=== PATIENT | female | born 1940 | race Hispanic/Latino ===

== ENCOUNTER 2016-12-09 11:01 | Emergency (ER) | payer MEDICARE ==
[2016-12-09 11:01] VITALS: BMI 33.6
[2016-12-09 11:53] LABS: BASO % 0.7 % (0.0-2.0); EOS # 0.1 K/uL (0.0-0.7); EOS % 0.8 % (0.0-4.0); HEMATOCRIT 37.7 % (34.0-47.0); LYMPH # 1.4 K/uL (1.0-4.3); LYMPH % 18.9 % (20.0-40.0); MEAN CELL VOLUME 89.5 fL (81.0-99.0); MEAN CORPUSCULAR HEMOGLOBIN 29.2 pg (27.0-31.0); MEAN CORPUSCULAR HGB CONC 32.7 g/dL (33.0-37.0); MEAN PLATELET VOLUME 9.1 fL (7.2-11.7); MONO # 0.5 K/uL (0.0-0.8); MONO % 6.2 % (0.0-10.0); RED CELL DISTRIBUTION WIDTH 17.7 % (11.5-14.5); WHITE BLOOD COUNT 7.6 K/uL (4.8-10.8)
[2016-12-09 12:02] LABS: CHLORIDE 98 mmol/L (98-107)
[2016-12-09 12:03] LABS: POTASSIUM 4.3 mmol/L (3.6-5.2); SODIUM 136 mmol/L (132-148)
[2016-12-09 12:05] LABS: AST/SGOT 24 U/L (14-36); BILIRUBIN,TOTAL 0.9 mg/dL (0.2-1.3); CARBON DIOXIDE 26 mmol/L (22-30); GFR AFRICAN-AMERICAN > 60
[2016-12-09 12:06] LABS: ALB/GLOB RATIO 1.6 (1.0-2.1); ALKALINE PHOSPHATASE 70 U/L (38-126); ALT/SGPT 16 U/L (9-52); BLOOD UREA NITROGEN 27 mg/dL (7-17); GLUCOSE,RANDOM 97 mg/dL (65-105); TOTAL PROTEIN 7.2 g/dL (6.3-8.3)
[2016-12-09 12:12] LABS: RBC URINE 13 /hpf (0-3); URINE BACTERIA RARE (<OCC); URINE BILIRUBIN NEGATIVE (NEGATIVE); URINE BLOOD 1+ (NEGATIVE); URINE COLOR Yellow (YELLOW); URINE GLUCOSE (UA) NORMAL (Normal); URINE KETONE NEGATIVE (NEGATIVE); URINE LEUKOCYTE ESTERASE 2+ Leu/uL (Negative); URINE PROTEIN NEGATIVE (NEGATIVE); URINE UROBILINOGEN NORMAL mg/dL (0.2-1.0); WBC URINE 14 /hpf (0-5)
--- NOTE | 2016-12-09 12:32 | RAD ---
PROCEDURE: CHEST RADIOGRAPH, 1 VIEW HISTORY: left sided pain COMPARISON: [facility] 06/12/2016. None available. FINDINGS: LUNGS: Clear. PLEURA: No pneumothorax or pleural fluid seen. CARDIOVASCULAR: Normal. OSSEOUS STRUCTURES: No significant abnormalities. VISUALIZED UPPER ABDOMEN: Normal. OTHER FINDINGS: None. IMPRESSION: No active disease. No acute/significant interval changes.
[2016-12-09] MEDS ORDERED: Iodixanol 320 MG/ML 100 ML BOTTLE IV ONE (13:14)
[2016-12-09] MEDS ORDERED: Oxycodone/Acetaminophen 5/325 mg Tab PO STA ×2 (14:41→17:34)
[2016-12-09] MEDS ORDERED: Oxycodone/Acetaminophen 5/325 mg Tab ONE ×2 (14:44→17:35)
--- NOTE | 2016-12-09 14:59 | CT ---
PROCEDURE: CT Chest, Abdomen and Pelvis with intravenous contrast HISTORY: left chest/flank pain COMPARISON: 03/10/2016 CT abdomen and pelvis TECHNIQUE: IV dose administered: 100 cc Visipaque 320 Radiation dose: Total exam DLP = 762.67 mGy-cm. This CT exam was performed using one or more of the following dose reduction techniques: Automated exposure control, adjustment of the mA and/or kV according to patient size, and/or use of iterative reconstruction technique. FINDINGS: CT CHEST WITH CONTRAST: LUNGS: Clear. No nodule, mass or consolidation. MEDIASTINUM: Unremarkable. Normal caliber aorta and pulmonary arterial trunk. No aortic dissection. Normal size heart. LYMPH NODES: Unremarkable. PLEURA: Unremarkable. No pneumothorax. No pleural fluid. BONES: Unremarkable. OTHER FINDINGS: Enlarged azygos and wen azygous vessels likely reflective of more distal thrombosis. Bus representing collateral flow. No evidence of aortic aneurysm, dissection or pulmonary embolism. CT ABDOMEN AND PELVIS: LIVER: Unremarkable. No gross lesion or ductal dilatation. GALLBLADDER AND BILE DUCTS: Cholelithiasis without CT evidence of acute cholecystitis. PANCREAS: Unremarkable. No gross lesion or ductal dilatation. SPLEEN: Unremarkable. ADRENALS: Unremarkable. No mass. KIDNEYS AND URETERS: Unremarkable. No hydronephrosis. No solid mass. Incidental finding(s): Simple renal cysts unchanged compared to prior studies. VASCULATURE: Unremarkable. No aortic aneurysm. Collateral venous this is chronic, identified on the prior study. 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 BOWEL: Unremarkable. No obstruction. No gross mural thickening. Diverticulosis without an acute inflammatory component or other associated pathologic process. APPENDIX: No abnormalities to suggest acute appendicitis. No right lower quadrant inflammatory processes identified. PERITONEUM: Unremarkable. No free fluid. No free air. LYMPH NODES: Unremarkable. No enlarged lymph nodes. BLADDER: Unremarkable. REPRODUCTIVE: Unremarkable. BONES: No acute fracture. OTHER FINDINGS: None. IMPRESSION: 1. No lymph 2. without CT evidence of acute cholecystitis. Diverticulosis without an acute inflammatory component or other associated pathologic process.
[2016-12-09 15:09] LABS: INR 2.1
--- NOTE | 2016-12-09 16:47 | C.PDOC ---
History Of Present Illness The patient, a 76 y/o female whose PMHx includes DVT and is currently taking Coumadin as prescribed, presents to the ED for evaluation of left-sided body pain which has been occurring in intermittent episodes for around 1 week. Patient denies fever, chills, recent trauma/injury, upper/lower extremity numbness/weakness. Time Seen by Provider: 12/09/16 11:10 Chief Complaint (Nursing): Abdominal Pain History Per: Patient History/Exam Limitations: no limitations Onset/Duration Of Symptoms: Intermittent Episodes (one week ) Current Symptoms Are (Timing): Still Present Quality Of Discomfort: "Pain" Associated Symptoms: denies: Fever, Chills Additional History Per: Patient Past Medical History Reviewed: Historical Data, Nursing Documentation, Vital Signs Vital Signs: Last Vital Signs Temp 98.5 F 12/09/16 11:15 Pulse 78 12/09/16 11:15 Resp 20 12/09/16 11:15 BP 164/85 H 12/09/16 11:15 Pulse Ox 99 12/09/16 17:46 - Medical History PMH: Arthritis, Colonic Polyps, Deep Vein Thrombosis, Fractures (RIGHT ANKLE), Gastritis, HTN, Hypercholesterolemia, Peripheral Edema Denies: Chronic Kidney Disease Surgical History: Endoscopy Family History: States: Unknown Family Hx - Social History Hx Tobacco Use: No Hx Alcohol Use: No Hx Substance Use: No - Immunization History Hx Tetanus Toxoid Vaccination: Yes Hx Influenza Vaccination: Yes Hx Pneumococcal Vaccination: Yes Review Of Systems Except As Marked, All Systems Reviewed And Found Negative. Constitutional: Negative for: Fever, Chills Musculoskeletal: Positive for: Other (+left-sided body pain ) Neurological: Negative for: Weakness, Numbness Physical Exam - Physical Exam Appears: Non-toxic, No Acute Distress Skin: Normal Color, Warm, Dry, No Ecchymosis Head: Atraumatic, Normacephalic Eye(s): bilateral: Normal Inspection Oral Mucosa: Moist Neck: Supple Chest: Symmetrical, No Deformity, Tenderness (slight to left lower lateral ribs) Cardiovascular: Rhythm Regular, No Murmur Respiratory: Normal Breath Sounds, No Rales, No Rhonchi, No Wheezing Gastrointestinal/Abdominal: Tenderness (to left upper quadrant on palpation ), No Guarding, No Rebound Extremity: Normal ROM, No Tenderness, No Calf Tenderness, Capillary Refill ( less than 2 seconds ), No Deformity, No Swelling Neurological/Psych: Oriented x3, Normal Speech, Normal Cognition Gait: Steady ED Course And Treatment - Laboratory Results Result Diagrams: 12/09/16 11:47 12/09/16 11:47 O2 Sat by Pulse Oximetry: 99 (on RA) Pulse Ox Interpretation: Normal - Other Rad CXR X-Ray: Interpreted by Me, Viewed By Me, Read By Radiologist Interpretation: Accession No. : [id number]. Patient Name / ID : BRENNAN Wyman / [id number]. Exam Date : 12/09/2016 11:52:11 ( Approved ). Study Comment : Sex / Age : F / 76Y. Creator : Raul Edge MD. Dictator : Raul Edge MD. Intake Manager : Automotive Glass Mechanic : Raul Edge MD. Approver2 : Report Date : 12/09/2016 12:30:38. My Comment : . PROCEDURE: CHEST RADIOGRAPH, 1 VIEW. HISTORY: left sided pain. COMPARISON: [facility] 06/12/2016. None available. FINDINGS: LUNGS: Clear. PLEURA: No pneumothorax or pleural fluid seen. CARDIOVASCULAR: Normal. OSSEOUS STRUCTURES: No significant abnormalities. VISUALIZED UPPER ABDOMEN: Normal. OTHER FINDINGS: None. IMPRESSION: No active disease. No acute/ significant interval changes. - CT Scan/US CT Angio Gamaliel/Abdomen/Pelvis Other Rad Studies (CT/US): Interpreted By Me, Read By Radiologist, Radiology Report Reviewed CT/US Interpretation: Accession No. : [id number]. Patient Name / ID : BRENNAN Wyman / [id number]. Exam Date : 12/09/2016 13:47:48 ( Approved ). Study Comment : Sex / Age : F / 76Y. Creator : Raul Edge MD. Dictator : Raul Edge MD. Intake Manager : Automotive Glass Mechanic : Raul Edge MD. Approver2 : Report Date : 12/09/2016 14:57:55. My Comment : . PROCEDURE: CT Chest, Abdomen and Pelvis with intravenous contrast. HISTORY: left chest/flank pain. COMPARISON: 03/10/2016 CT abdomen and pelvis. TECHNIQUE: IV dose administered: 100 cc Visipaque 320. Radiation dose: Total exam DLP = 762.67 mGy-cm. This CT exam was performed using one or more of the following dose reduction techniques: Automated exposure control, adjustment of the mA and/or kV according to patient size, and/ or use of iterative reconstruction technique. FINDINGS: CT CHEST WITH CONTRAST : LUNGS: Clear. No nodule, mass or consolidation. MEDIASTINUM: Unremarkable. Normal caliber aorta and pulmonary arterial trunk. No aortic dissection. Normal size heart. LYMPH NODES: Unremarkable. PLEURA: Unremarkable. No pneumothorax. No pleural fluid. BONES: Unremarkable. OTHER FINDINGS: Enlarged azygos and wen azygous vessels likely reflective of more distal thrombosis. Bus representing collateral flow. No evidence of aortic aneurysm, dissection or pulmonary embolism. CT ABDOMEN AND PELVIS: LIVER: Unremarkable. No gross lesion or ductal dilatation. GALLBLADDER AND BILE DUCTS : Cholelithiasis without CT evidence of acute cholecystitis. PANCREAS: Unremarkable. No gross lesion or ductal dilatation. SPLEEN: Unremarkable. ADRENALS: Unremarkable. No mass. KIDNEYS AND URETERS: Unremarkable. No hydronephrosis. No solid mass. Incidental finding(s): Simple renal cysts unchanged compared to prior studies. VASCULATURE: Unremarkable. No aortic aneurysm. Collateral venous this is chronic, identified on the prior study. 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 BOWEL: Unremarkable. No obstruction. No gross mural thickening. Diverticulosis without an acute inflammatory component or other associated pathologic process. APPENDIX: No abnormalities to suggest acute appendicitis. No right lower quadrant inflammatory processes identified. PERITONEUM: Unremarkable. No free fluid. No free air. LYMPH NODES: Unremarkable. No enlarged lymph nodes. BLADDER: Unremarkable. REPRODUCTIVE: Unremarkable. BONES: No acute fracture. OTHER FINDINGS: None. IMPRESSION: 1. No lymph. 2. without CT evidence of acute cholecystitis. Diverticulosis without an acute inflammatory component or other associated pathologic process. Progress Note: CT Angio Chest/Abdomen/Pelvis, CXR, EKG, and labs ordered and reviewed. Patient received Macrobid PO and Percocet PO. Case discussed with Dr. Kit Rizzo, who states patient's pain is chronic. Patient has undergone a cardiac workup in the past, the results of which were negative. Dr. Rizzo advises that there is no need for admission at this time and states he will follow up with patient in outpatient care. On reassessment, patient is resting comfortably, showing no signs of discomfort, and is stable for discharge. Patient is advised to follow up with Dr. Rizzo within 1-2 days for further evaluation or return to the ED if her symptoms worsen. Disposition - Disposition Disposition: HOME/ ROUTINE Disposition Time: 16:38 Condition: STABLE Additional Instructions: Follow up with PMD within 1-2 days. Return to ED if feel worse. Prescriptions: Nitrofurantoin Macrocrystals [Macrobid] 1 cap PO BID #14 cap oxyCODONE/Acetaminophen [Percocet 5/325 mg Tab] 1 tab PO QID PRN #15 tab PRN Reason: Pain Instructions: Urinary Tract Infection in Women (ED), Flank Pain (ED) - Clinical Impression Clinical Impression: UTI (lower urinary tract infection), Flank pain - PA / [employer] DIRECTOR / Resident Statement MD/DO has reviewed & agrees with the documentation as recorded. - Scribe Statement The provider has reviewed the documentation as recorded by the Scribe (Vane Oquendo) All medical record entries made by the Scribe were at my direction and personally dictated by me. I have reviewed the chart and agree that the record accurately reflects my personal performance of the history, physical exam, medical decision making, and the department course for this patient. I have also personally directed, reviewed, and agree with the discharge instructions and disposition.
[2016-12-09 17:48] VITALS: BP 155/70; PULSE 74; RESP 18; TEMP 98.7
[2016-12-09 17:50] VITALS: O2SAT 99
--- NOTE | 2016-12-12 12:18 | CARD ---
APPROVED REPORT EKG Measurement Heart [id number] [id number] <Conclusion> Normal sinus rhythm Normal ECG
== END 2016-12-09 17:48 | disposition home or self-care (01) ==
LOC: C.ER 11:01
DX: N39.0 Urinary tract infection, site not specified (principal); R10.9 Unspecified abdominal pain; I10 Essential (primary) hypertension; E78.00 Pure hypercholesterolemia, unspecified; Z86.718 Personal history of other venous thrombosis and embolism; Z79.01 Long term (current) use of anticoagulants
CPT/HCPCS: 71010; 71270; 74175; 80053; 81001; 85025; 85610; 85730; 93005; 99285; Q9967

== ENCOUNTER 2017-01-18 17:31 | Inpatient (IN) | payer MEDICARE ==
[2017-01-18 17:31] VITALS: BMI 33.6
[2017-01-18 18:45] LABS: BASO % 0.3 % (0.0-2.0); EOS % 0.1 % (0.0-4.0); HEMOGLOBIN 13.5 g/dL (11.0-16.0); LYMPH # 1.3 K/uL (1.0-4.3); LYMPH % 16.1 % (20.0-40.0); MEAN CELL VOLUME 89.8 fL (81.0-99.0); MEAN CORPUSCULAR HGB CONC 32.3 g/dL (33.0-37.0); MEAN PLATELET VOLUME 8.4 fL (7.2-11.7); MONO # 0.6 K/uL (0.0-0.8); MONO % 6.9 % (0.0-10.0); NEUT # 6.4 K/uL (1.8-7.0); NEUT % 76.6 % (50.0-75.0); NRBC % 0.1 % (0.0-2.0); RBC 4.65 Mil/uL (3.80-5.20); RED CELL DISTRIBUTION WIDTH 17.3 % (11.5-14.5); WHITE BLOOD COUNT 8.3 K/uL (4.8-10.8)
--- NOTE | 2017-01-18 18:49 | C.PDOC ---
History Of Present Illness Patient is a 76 y/o female that presents to the ED for evaluation of intermittent shortness of breath for the last week. Patient states that her symptoms are worse after eating. Pt also reports having near syncopal episode yesterday, including dizziness, and lightheadedness, but states that she felt better after sitting down. Otherwise, denies any chest pain, palpitations, cough , sputum, fever, or any other associated symptoms at this time. Time Seen by Provider: 01/18/17 18:18 Chief Complaint (Nursing): Shortness Of Breath History Per: Patient History/Exam Limitations: no limitations Onset/Duration Of Symptoms: Days (1 week) Current Symptoms Are (Timing): Still Present Associated Symptoms: denies: Fever, Chills, Sweating, Chest Pain, Bloody Cough, Productive Cough, Heart Racing, Leg/Calf Pain, Ankle/Leg Swelling, Anxiety, Tingling In Hands Or Face, Musle Spasms In Hands Or Feet Recent travel outside of the [place]: No Additional History Per: Patient Past Medical History Reviewed: Historical Data, Nursing Documentation, Vital Signs Vital Signs: Last Vital Signs Temp 98.4 F 01/18/17 17:32 Pulse 86 01/18/17 17:32 Resp 11 L 01/18/17 18:29 BP 178/76 H 01/18/17 17:32 Pulse Ox 98 01/18/17 19:04 - Medical History PMH: Arthritis, Colonic Polyps, Deep Vein Thrombosis, Fractures (RIGHT ANKLE), Gastritis, HTN, Hypercholesterolemia, Peripheral Edema Denies: Chronic Kidney Disease Surgical History: Endoscopy Family History: States: Unknown Family Hx - Social History Hx Tobacco Use: No Hx Alcohol Use: No Hx Substance Use: No - Immunization History Hx Tetanus Toxoid Vaccination: No Hx Influenza Vaccination: Yes Hx Pneumococcal Vaccination: No Review Of Systems Except As Marked, All Systems Reviewed And Found Negative. Constitutional: Negative for: Fever, Chills Cardiovascular: Negative for: Chest Pain, Palpitations, Edema Respiratory: Positive for: Shortness of Breath. Negative for: Cough, Hemoptysis , Pleuritic Pain, Sputum, Wheezing Gastrointestinal: Negative for: Nausea, Vomiting Neurological: Negative for: Weakness, Numbness, Headache Physical Exam - Physical Exam Appears: Non-toxic, No Acute Distress Skin: Normal Color, Warm, Dry Head: Atraumatic, Normacephalic Eye(s): bilateral: Normal Inspection, EOMI Neck: Normal ROM, Supple Chest: Symmetrical, No Tenderness Cardiovascular: Rhythm Regular, No Murmur Respiratory: Decreased Breath Sounds (in bases), No Rales, No Rhonchi, No Wheezing Gastrointestinal/Abdominal: Soft, No Tenderness Extremity: Normal ROM, No Deformity Neurological/Psych: Oriented x3, Normal Speech, Normal Cognition ED Course And Treatment - Laboratory Results Result Diagrams: 01/18/17 18:42 01/18/17 18:42 ECG: Interpreted By Me, Viewed By Me ECG Rhythm: Sinus Rhythm ECG Interpretation: Abnormal Interpretation Of ECG: Compared to EKG from 12/09/16, there is new T wave inversion in lead III, and AVF. Rate From EC (bpm) O2 Sat by Pulse Oximetry: 98 (on RA) Pulse Ox Interpretation: Normal Progress Note: Labs, CXR, EKG ordered and reviewed. On reassessment, patient is resting comfortably, with no acute distress. - Physician Consult Information Physician Contacted: Kit Rizzo Outcome Of Conversation: Accepted to tele for observation. Requested to order Head CT, will follow the result. Disposition - Disposition Disposition: HOSPITALIZED Disposition Time: 19:33 Condition: FAIR - Clinical Impression Clinical Impression: SOB (shortness of breath), Near syncope - PA / PLATE FORMER / Resident Statement MD/DO has reviewed & agrees with the documentation as recorded. - Scribe Statement The provider has reviewed the documentation as recorded by the Scribe iBjan Oquendo All medical record entries made by the Scribe were at my direction and personally dictated by me. I have reviewed the chart and agree that the record accurately reflects my personal performance of the history, physical exam, medical decision making, and the department course for this patient. I have also personally directed, reviewed, and agree with the discharge instructions and disposition. Decision To Admit - Pt Status Changed To: Hospital Disposition Of: Observation - . Bed Request Type: Telemetry Admitting Physician: Kit Rizzo Patient Diagnosis: SOB (shortness of breath), Near syncope
[2017-01-18 18:55] LABS: INR 4.3
[2017-01-18 18:56] LABS: ALB/GLOB RATIO 1.4 (1.0-2.1); AST/SGOT 22 U/L (14-36); BLOOD UREA NITROGEN 27 mg/dL (7-17); GFR AFRICAN-AMERICAN > 60; GFR NON-AFRICAN AMERICAN > 60
[2017-01-18 18:57] LABS: ALT/SGPT 16 U/L (9-52); CALCIUM 9.2 mg/dl (8.6-10.4)
[2017-01-18 19:00] LABS: PROTHROMBIN TIME 51.1 SECONDS (9.7-12.2)
[2017-01-18 19:05] LABS: CK-MB 0.63 ng/mL (0.0-3.38)
[2017-01-18] MEDS ORDERED: Home Med 1 UNIT (Atorvastatin [Lipitor] 10 MG) PO SCH (20:45)
--- NOTE | 2017-01-19 08:04 | CT ---
PROCEDURE: CT HEAD WITHOUT CONTRAST. HISTORY: near syncope COMPARISON: None available. TECHNIQUE: Axial computed tomography images were obtained through the head/brain without intravenous contrast. Radiation dose: Total exam DLP = 822 mGy-cm. This CT exam was performed using one or more of the following dose reduction techniques: Automated exposure control, adjustment of the mA and/or kV according to patient size, and/or use of iterative reconstruction technique. FINDINGS: HEMORRHAGE: No intracranial hemorrhage. BRAIN: No mass effect or edema. Scattered focal lucencies in the subcortical and periventricular white matter suggestive for chronic microvascular ischemic change. Diffuse prominence of the ventricles and sulci compatible with age related atrophy. Relative confluent area of low attenuation seen within the posterior left parietal subcortical white matter suggestive for chronic ischemic change. VENTRICLES: Prominent. CALVARIUM: Unremarkable. PARANASAL SINUSES: Grossly preserved. MASTOID AIR CELLS: Partial opacification of the left mastoid air cells. OTHER FINDINGS: Atherosclerotic calcification in the intracranial arteries. Heterogeneous increased density in the left orbital globe. Clinical correlation. IMPRESSION: Chronic microvascular ischemic change. Diffuse atrophy. Left mastoid disease. Heterogeneous increased density in the left orbital globe. Rep recommend funduscopic examination if clinically indicated. If focal neurologic deficit persists, consider MRI. These findings were preliminarily reported at 8:56 p.m. on 01/18/[address] Juve Lazar from [facility].
--- NOTE | 2017-01-19 09:13 | RAD ---
PROCEDURE: CHEST RADIOGRAPH, 1 VIEW HISTORY: Shortness of breath COMPARISON: 12/09/2016 FINDINGS: LUNGS: Biapical pleural thickening with upper lobe granulomatous changes. Diffuse increased interstitial lung markings. Right hilar prominence. PLEURA: No pneumothorax or pleural fluid seen. CARDIOVASCULAR: Normal. OSSEOUS STRUCTURES: Degenerative changes in the spine and shoulders. VISUALIZED UPPER ABDOMEN: Normal. OTHER FINDINGS: None. IMPRESSION: Biapical pleural thickening with upper lobe granulomatous changes. Diffuse increased interstitial lung markings. Right hilar prominence.
[2017-01-19] MEDS: Pantoprazole 40 mg EC Tab PO SCH (10:10)
[2017-01-19] MEDS: diltiaZEM 180 mg/24 Hours CD Cap PO SCH (10:10)
[2017-01-19 13:56] LABS: SQUAMOUS EPITHIAL < 1 /hpf (0-5); URINE BILIRUBIN NEGATIVE (NEGATIVE); URINE BLOOD 1+ (NEGATIVE); URINE CLARITY Clear (Clear); URINE COLOR Straw (YELLOW); URINE GLUCOSE (UA) NORMAL (Normal); URINE LEUKOCYTE ESTERASE 1+ Leu/uL (Negative); URINE NITRATE NEGATIVE (NEGATIVE); URINE PROTEIN NEGATIVE (NEGATIVE); URINE UROBILINOGEN NORMAL mg/dL (0.2-1.0)
[2017-01-19 14:19] LABS: BASO % 0.3 % (0.0-2.0); EOS % 0.2 % (0.0-4.0); HEMOGLOBIN 14.4 g/dL (11.0-16.0); LYMPH # 1.1 K/uL (1.0-4.3); LYMPH % 12.7 % (20.0-40.0); MEAN CELL VOLUME 90.3 fL (81.0-99.0); MEAN CORPUSCULAR HEMOGLOBIN 29.2 pg (27.0-31.0); MEAN CORPUSCULAR HGB CONC 32.3 g/dL (33.0-37.0); MEAN PLATELET VOLUME 8.7 fL (7.2-11.7); MONO # 0.4 K/uL (0.0-0.8); MONO % 5.3 % (0.0-10.0); NEUT # 6.8 K/uL (1.8-7.0); NEUT % 81.5 % (50.0-75.0); RBC 4.94 Mil/uL (3.80-5.20); RED CELL DISTRIBUTION WIDTH 17.8 % (11.5-14.5); WHITE BLOOD COUNT 8.4 K/uL (4.8-10.8)
[2017-01-19 14:24] LABS: INR 3.5
[2017-01-19 14:28] LABS: ALBUMIN 4.2 g/dL (3.5-5.0)
[2017-01-19 14:31] LABS: ALB/GLOB RATIO 1.3 (1.0-2.1); ALT/SGPT 23 U/L (9-52); AST/SGOT 20 U/L (14-36); BLOOD UREA NITROGEN 23 mg/dL (7-17); GFR AFRICAN-AMERICAN > 60; GFR NON-AFRICAN AMERICAN > 60
[2017-01-19 14:32] LABS: CALCIUM 9.2 mg/dl (8.6-10.4)
[2017-01-19 14:36] LABS: PROTHROMBIN TIME 40.9 SECONDS (9.7-12.2)
--- NOTE | 2017-01-19 17:08 | CARD ---
APPROVED REPORT EKG Measurement Heart [id number] <Conclusion> Normal sinus rhythm T wave abnormality, consider inferior ischemia Abnormal ECG
--- NOTE | 2017-01-19 17:16 | US ---
PROCEDURE: Ultrasound of the Kidneys HISTORY: htn COMPARISON: None available. TECHNIQUE: Sonogram of the kidneys. FINDINGS: RIGHT KIDNEY: Measures: 10.2 cm. Diffusely increased cortical echogenicity. Upper pole simple cortical cyst, 2.9 x 3.0 x 3.3 cm. No other mass. No calculus or hydronephrosis. LEFT KIDNEY: Measures: 9.1 cm. Diffusely increased cortical echogenicity. Mid left renal cortical cyst, 9 x 9 x 15 mm. No solid mass. No calculus or hydronephrosis. OTHER FINDINGS: None. IMPRESSION: Increased renal cortical echogenicity. Bilateral simple renal cortical cyst.
[2017-01-20 08:06] LABS: INR 3.3
[2017-01-20 08:18] LABS: PROTHROMBIN TIME 39.2 SECONDS (9.7-12.2)
[2017-01-20 08:32] VITALS: RESP 18; O2SAT 97
[2017-01-20] MEDS: Pantoprazole 40 mg EC Tab PO SCH (10:31)
[2017-01-20] MEDS: diltiaZEM 180 mg/24 Hours CD Cap PO SCH (10:31)
[2017-01-20] MEDS ORDERED: Pneumococcal 23-Valent Vaccine IM ONE (14:15)
[2017-01-20 15:33] VITALS: BP 110/68; PULSE 71; TEMP 98.2
--- NOTE | 2017-01-20 17:33 | PCM.HF ---
Heart Failure Core Measure - Heart Failure Ejection Fraction: 40 % or Greater CLIVE Inhibitor Prescribed: No Contraindication/Reason for not providing: EF>45 Beta-Radha Prescribed: Metoprolol Succinate Angiotensin II Receptor Radha Prescribed: No Contraindication/Reason for not providing: ef>45 AnticoagulationTherapy for Atrial Fibrillation/Atrialflutter: Yes Aldosterone Antagonist Prescribed: No Contraindication/Reason for not providing: ef>45 Hydralazine Nitrate Prescribed: No Contraindication/Reason for not providing: on cardizem for rate controll/ef>45 Implantable Cardioverter Defibrillator Therapy: No Contraindication/Reason for not providing: ef.45 Cardiac Resynchronization Therapy Prescribed: No Contraindication/Reason for not providing: ef.45 - Follow up Will be discharged to: Home Follow Up Date (must be within 7 days from discharge): 01/23/17 Follow Up Time: 09:00
[2017-01-21] MEDS ORDERED: Pneumococcal 23-Valent Vaccine IM ONE (10:00)
== END 2017-01-20 16:47 | disposition home or self-care (01) | DRG 312 ==
LOC: C.ER 17:31 → C.6T 19:30 → OBSVTOIN 01-19 13:03 → UNDODISIN 01-20 14:17
PROVIDERS: ADMIT Internal Medicine Cardiovascular Disease; ATTEND Internal Medicine Cardiovascular Disease
DX: R55 Syncope and collapse (principal); R06.00 Dyspnea, unspecified; I10 Essential (primary) hypertension; E78.00 Pure hypercholesterolemia, unspecified; Z86.010 Personal history of colon polyps; Z86.718 Personal history of other venous thrombosis and embolism

== ENCOUNTER 2017-05-09 10:55 | Emergency (ER) | payer MEDICARE ==
[2017-05-09 11:05] VITALS: BMI 32.5
[2017-05-09 11:32] LABS: BASO # 0.1 K/uL (0.0-0.2); BASO % 0.9 % (0.0-2.0); EOS % 0.3 % (0.0-4.0); HEMATOCRIT 40.9 % (34.0-47.0); LYMPH # 0.9 K/uL (1.0-4.3); MEAN CELL VOLUME 92.4 fL (81.0-99.0); MEAN CORPUSCULAR HEMOGLOBIN 30.6 pg (27.0-31.0); MEAN CORPUSCULAR HGB CONC 33.1 g/dL (33.0-37.0); MEAN PLATELET VOLUME 8.7 fL (7.2-11.7); MONO # 0.4 K/uL (0.0-0.8); MONO % 6.2 % (0.0-10.0); RED CELL DISTRIBUTION WIDTH 16.1 % (11.5-14.5); WHITE BLOOD COUNT 6.9 K/uL (4.8-10.8)
[2017-05-09 11:48] LABS: INR 2.4
[2017-05-09 11:52] LABS: CHLORIDE 96 mmol/L (98-107)
[2017-05-09 11:53] LABS: SODIUM 136 mmol/L (132-148)
[2017-05-09 11:55] LABS: ALB/GLOB RATIO 1.3 (1.0-2.1); AST/SGOT 19 U/L (14-36); BILIRUBIN,TOTAL 0.7 mg/dL (0.2-1.3); CARBON DIOXIDE 29 mmol/L (22-30); GFR AFRICAN-AMERICAN > 60; TOTAL PROTEIN 7.6 g/dL (6.3-8.3)
[2017-05-09 11:56] LABS: ALKALINE PHOSPHATASE 67 U/L (38-126); ALT/SGPT 29 U/L (9-52); BLOOD UREA NITROGEN 22 mg/dL (7-17); CALCIUM 9.6 mg/dl (8.6-10.4); GLUCOSE,RANDOM 95 mg/dL (65-105)
--- NOTE | 2017-05-09 12:34 | RAD ---
HISTORY: SOB COMPARISON: Chest x-ray performed 01/18/17 TECHNIQUE: Chest PA and lateral FINDINGS: Examination limited by habitus. LUNGS: Mild biapical pleural thickening with upper lobe granulomatous changes. Diffuse increased interstitial markings. No focal consolidation. Please note that chest x-ray has limited sensitivity for the detection of pulmonary masses. PLEURA: No significant pleural effusion identified. No definite pneumothorax . CARDIOVASCULAR: Heart size appears top normal. OSSEOUS STRUCTURES: Osseous demineralization. Degenerative changes of the spine. VISUALIZED UPPER ABDOMEN: Unremarkable. OTHER FINDINGS: None. IMPRESSION: Mild biapical pleural thickening with upper lobe granulomatous changes. Diffuse increased interstitial markings.
[2017-05-09 12:57] VITALS: RESP 20; O2SAT 97
[2017-05-09 13:14] LABS: URINE BILIRUBIN NEGATIVE (NEGATIVE); URINE BLOOD 1+ (NEGATIVE); URINE COLOR Straw (YELLOW); URINE GLUCOSE (UA) NORMAL (Normal); URINE KETONE NEGATIVE (NEGATIVE); URINE LEUKOCYTE ESTERASE NEG Leu/uL (Negative); URINE PROTEIN NEGATIVE (NEGATIVE); URINE UROBILINOGEN NORMAL mg/dL (0.2-1.0); WBC URINE 1 /hpf (0-5)
[2017-05-09 13:15] LABS: RBC URINE 2 /hpf (0-3); URINE BACTERIA RARE (<OCC)
--- NOTE | 2017-05-09 13:24 | C.PDOC ---
History Of Present Illness 76 y/o female with PMHx of HTN and DVT presents to ED with complaints of developing chest pain earlier today. Patient at ed is asymptomatic but states she was concerned and came for evaluation. Patient is on Coumadin and reports x1 episode of chest pain lasted 20minutes. Patient denies fever, chills, sob, cough, nausea, dizziness or any other complaints at this time. Time Seen by Provider: 05/09/17 11:10 Chief Complaint (Nursing): Chest Pain History Per: Patient History/Exam Limitations: no limitations Onset/Duration Of Symptoms: Hrs Current Symptoms Are (Timing): Gone Past Medical History Reviewed: Historical Data, Nursing Documentation, Vital Signs Vital Signs: Last Vital Signs Temp 98.2 F 05/09/17 13:44 Pulse 71 05/09/17 13:44 Resp 20 05/09/17 13:44 BP 168/64 H 05/09/17 13:44 Pulse Ox 97 05/09/17 17:41 - Medical History PMH: Arthritis, Colonic Polyps, Deep Vein Thrombosis, Fractures (RIGHT ANKLE), Gastritis, HTN, Hypercholesterolemia, Peripheral Edema Surgical History: Endoscopy Family History: States: No Known Family Hx - Social History Hx Tobacco Use: No Hx Alcohol Use: No Hx Substance Use: No - Immunization History Hx Tetanus Toxoid Vaccination: No Hx Influenza Vaccination: Yes Hx Pneumococcal Vaccination: Yes Review Of Systems Constitutional: Negative for: Fever, Chills Cardiovascular: Positive for: Chest Pain Respiratory: Negative for: Cough, Shortness of Breath Gastrointestinal: Negative for: Nausea, Vomiting Skin: Negative for: Rash Neurological: Negative for: Weakness, Numbness Physical Exam - Physical Exam Appears: Non-toxic, No Acute Distress Skin: Normal Color, Warm, Dry, No Rash Head: Atraumatic, Normacephalic Oral Mucosa: Moist Neck: Normal ROM, Supple Chest: Symmetrical, Other (reproducible right chest pain ) Cardiovascular: Rhythm Regular Respiratory: Normal Breath Sounds, No Rales, No Rhonchi, No Wheezing Gastrointestinal/Abdominal: Soft, No Tenderness, No Guarding, No Rebound Extremity: Normal ROM, No Pedal Edema Neurological/Psych: Oriented x3 ED Course And Treatment - Laboratory Results Result Diagrams: 05/09/17 11:24 05/09/17 11:24 Lab Interpretation: Normal ECG: Interpreted By Me, Viewed By Me ECG Rhythm: Sinus Rhythm, 1st Degree HB ECG Interpretation: No Acute Changes Rate From EC (BPM) O2 Sat by Pulse Oximetry: 97 (RA) - Radiology CXR: Interpreted by Me CXR Interpretation: Yes: No Acute Disease Progress Note: Case discussed with Dr Zenia Rizzo and agrees with discharge and follow up as outpatient. On re evaluation lungs clear in no distress Reassessment Condition: Unchanged - Physician Consult Information Physician Contacted: Kit Rizzo Outcome Of Conversation: discharge Medical Decision Making Medical Decision Making: Plan: ECG Progress: Spoke with patient PMD Dr.Shah Pantoja who stated patient had history of cardiac cath x1 year ago that was normal PMD agreed upon patient's discharge with follow up Disposition Discussed With Dr.: Kit Rizzo Doctor Will See Patient In The: Office Counseled Patient/Family Regarding: Studies Performed, Diagnosis, Need For Followup - Disposition Referrals: Kit Rizzo MD [Staff Provider] - Disposition: HOME/ ROUTINE Disposition Time: 15:00 Condition: STABLE Additional Instructions: Follow up with Dr Rizzo for further evaluation Return toed if any increase symptoms Instructions: Chest Pain (ED), Chest Wall Pain (ED) Forms: [email or web address] (Barbadian) - POA Present On Arrival: None - Clinical Impression Clinical Impression: Chest wall pain - PA / INTERNATIONAL TRADE SPECIALIST / Resident Statement MD/DO has reviewed & agrees with the documentation as recorded. - Scribe Statement The provider has reviewed the documentation as recorded by the Rut Tariq All medical record entries made by the Rut were at my direction and personally dictated by me. I have reviewed the chart and agree that the record accurately reflects my personal performance of the history, physical exam, medical decision making, and the department course for this patient. I have also personally directed, reviewed, and agree with the discharge instructions and disposition.
[2017-05-09 13:45] VITALS: BP 168/64; PULSE 71; TEMP 98.2
--- NOTE | 2017-05-12 10:40 | CARD ---
APPROVED REPORT EKG Measurement Heart [id number] <Conclusion> Normal sinus rhythm Normal ECG
== END 2017-05-09 13:44 | disposition home or self-care (01) ==
LOC: C.ER 10:55
DX: R07.89 Other chest pain (principal)

== ENCOUNTER 2017-08-23 15:20 | Emergency (ER) | payer MEDICARE ==
[2017-08-23 15:21] VITALS: BMI 32.5
[2017-08-23] MEDS ORDERED: Sodium Chloride 0.9% 1,000 ML IV ONE (17:21)
[2017-08-23] MEDS ORDERED: Sodium Chloride 0.9% 1,000 ML ONE (17:40)
[2017-08-23 17:41] LABS: BASO % 0.5 % (0.0-2.0); EOS % 0.1 % (0.0-4.0); HEMOGLOBIN 12.3 g/dL (11.0-16.0); LYMPH % 13.1 % (20.0-40.0); MEAN CELL VOLUME 91.9 fL (81.0-99.0); MEAN CORPUSCULAR HEMOGLOBIN 30.9 pg (27.0-31.0); MEAN CORPUSCULAR HGB CONC 33.7 g/dL (33.0-37.0); MEAN PLATELET VOLUME 7.8 fL (7.2-11.7); MONO # 0.5 K/uL (0.0-0.8); MONO % 6.8 % (0.0-10.0); NEUT # 6.1 K/uL (1.8-7.0); NEUT % 79.5 % (50.0-75.0); RBC 3.99 Mil/uL (3.80-5.20); RED CELL DISTRIBUTION WIDTH 17.5 % (11.5-14.5); WHITE BLOOD COUNT 7.7 K/uL (4.8-10.8)
[2017-08-23 17:57] LABS: SQUAMOUS EPITHIAL 1 /hpf (0-5); URINE BACTERIA RARE (<OCC); URINE BILIRUBIN NEGATIVE (NEGATIVE); URINE BLOOD 1+ (NEGATIVE); URINE CLARITY Hazy (Clear); URINE COLOR Yellow (YELLOW); URINE GLUCOSE (UA) NORMAL (Normal); URINE HYALINE CAST 0-2 /lpf (0-2); URINE LEUKOCYTE ESTERASE 3+ Leu/uL (Negative); URINE NITRATE NEGATIVE (NEGATIVE); URINE PROTEIN NEGATIVE (NEGATIVE); URINE UROBILINOGEN NORMAL mg/dL (0.2-1.0)
[2017-08-23 17:59] LABS: ALB/GLOB RATIO 1.5 (1.0-2.1); ALT/SGPT 19 U/L (9-52); AST/SGOT 19 U/L (14-36); BLOOD UREA NITROGEN 33 mg/dL (7-17); GFR AFRICAN-AMERICAN > 60; GFR NON-AFRICAN AMERICAN > 60; LIPASE 104 U/L (23-300)
--- NOTE | 2017-08-23 18:50 | C.PDOC ---
History Of Present Illness <DerasOg Stevo - Last Filed: 08/23/17 22:09> <Reese MENDEZHermilo - Last Filed: 08/24/17 18:36> 76 y/o female presents to the ED for evaluation of epigastric and LUQ abdominal pain which began 2 days ago. Patient reports she is currently taking Coumadin. She denies fever, chills, cough, chest pain, nausea, vomiting, diarrhea, changes in appetite/PO intake, (Hermilo Leigh DO) <BraedenOg R - Last Filed: 08/23/17 22:09> History Per: Patient History/Exam Limitations: no limitations Onset/Duration Of Symptoms: Days (2) Current Symptoms Are (Timing): Still Present Location Of Pain/Discomfort: Epigastric, LUQ Quality Of Discomfort: "Pain" Associated Symptoms: denies: Fever, Chills, Nausea, Vomiting, Diarrhea, Chest Pain Additional History Per: Patient Abnormal Vaginal Bleeding: No <Hermilo Leigh DO - Last Filed: 08/24/17 18:36> Chief Complaint (Nursing): Abdominal Pain Past Medical History Reviewed: Historical Data, Nursing Documentation, Vital Signs - Medical History PMH: Arthritis, Colonic Polyps, Deep Vein Thrombosis, Fractures (RIGHT ANKLE), Gastritis, HTN, Hypercholesterolemia, Peripheral Edema Denies: Chronic Kidney Disease Surgical History: Endoscopy Family History: States: Unknown Family Hx - Social History Hx Tobacco Use: No Hx Alcohol Use: No Hx Substance Use: No - Immunization History Hx Tetanus Toxoid Vaccination: No Hx Influenza Vaccination: No Hx Pneumococcal Vaccination: No <Reese MENDEZHermilo - Last Filed: 08/24/17 18:36> Vital Signs: Last Vital Signs Temp 98.5 F 08/23/17 22:28 Pulse 78 08/23/17 22:28 Resp 17 08/23/17 22:28 BP 167/71 H 08/23/17 22:28 Pulse Ox 95 08/23/17 22:28 Review Of Systems Constitutional: Negative for: Fever, Chills Cardiovascular: Negative for: Chest Pain Respiratory: Negative for: Cough Gastrointestinal: Positive for: Abdominal Pain (epigastric and LUQ ). Negative for: Nausea, Vomiting, Diarrhea <Hermilo Leigh DO - Last Filed: 08/24/17 18:36> Physical Exam - Physical Exam Appears: Non-toxic Skin: Normal Color, Warm, Dry Head: Atraumatic, Normacephalic Eye(s): bilateral: Normal Inspection Oral Mucosa: Moist Neck: Supple Chest: Symmetrical, No Deformity, No Tenderness Cardiovascular: Rhythm Regular, No Murmur Respiratory: Normal Breath Sounds, No Rales, No Rhonchi, No Wheezing Gastrointestinal/Abdominal: Soft, Tenderness (very mild, to epigastric and left upper quadrant ), No Guarding, No Rebound Extremity: Normal ROM, Capillary Refill (less than 2 seconds ) Neurological/Psych: Oriented x3, Normal Speech, Normal Cognition Gait: Steady <Hermilo Leigh DO - Last Filed: 08/24/17 18:36> ED Course And Treatment - Laboratory Results Result Diagrams: 08/23/17 17:37 08/23/17 17:37 <Og Deras - Last Filed: 08/23/17 22:09> - Laboratory Results Result Diagrams: 08/23/17 17:37 08/23/17 17:37 O2 Sat by Pulse Oximetry: 93 <Hermilo Leigh DO - Last Filed: 08/24/17 18:36> Medical Decision Making <Og Deras - Last Filed: 08/23/17 22:09> <Hermilo Leigh DO - Last Filed: 08/24/17 18:36> Medical Decision Making: Progress: Bloodwork, urinalysis, CT A/P ordered and reviewed. Pepcid IVP, Zofran IVP, and IV Fluids administered. (Hermilo Leigh DO) Disposition Counseled Patient/Family Regarding: Diagnosis - Disposition Disposition Time: 22:10 - POA Present On Arrival: None <Og Deras Last Filed: 08/23/17 22:09> <Hermilo Leigh DO - Last Filed: 08/24/17 18:36> - Disposition Referrals: [facility] [Outside] Disposition: HOME/ ROUTINE Condition: STABLE Prescriptions: Nitrofurantoin Macrocrystals [Macrobid] 1 cap PO BID #14 cap Phenobarb/Hyoscy/Atropine/Scop [ Tablet] 16.2 mg PO Q6 #14 tablet Instructions: Urinary Tract Infection in Women (GEN), Abdominal Pain (ED) Forms: [employer] (Ethiopian) - Clinical Impression Clinical Impression: Abdominal pain, Urinary tract infection, Gall bladder stones <Og Deras - Last Filed: 08/23/17 22:09> - Scribe Statement The provider has reviewed the documentation as recorded by the Scribe (Vane Oquendo) <Hermilo Leigh DO - Last Filed: 08/24/17 18:36> - Scribe Statement Provider Attestation: All medical record entries made by the Scribe were at my direction and personally dictated by me. I have reviewed the chart and agree that the record accurately reflects my personal performance of the history, physical exam, medical decision making, and the department course for this patient. I have also personally directed, reviewed, and agree with the discharge instructions and disposition. (Hermilo Leigh DO)
[2017-08-23 19:31] LABS: INR 3.6
[2017-08-23] MEDS ORDERED: Iohexol 350mg/ml 100 ML ONE (19:31)
--- NOTE | 2017-08-23 21:26 | CT ---
EXAM: CT Abdomen and Pelvis With Intravenous Contrast CLINICAL HISTORY: 76 years old, female; Pain; Abdominal pain; Epigastric; Additional info: Luq/epigastric abdominal pain TECHNIQUE: Axial computed tomography images of the abdomen and pelvis with intravenous contrast. All CT scans at this facility use one or more dose reduction techniques, viz.: automated exposure control; ma/kV adjustment per patient size (including targeted exams where dose is matched to indication; i.e. head); or iterative reconstruction technique. Coronal and sagittal reformatted images were created and reviewed. CONTRAST: 100 mL of omniupaque 350 administered intravenously. COMPARISON: CT - ABD PELVIS IV CONTRAST ONLY 2016-03-10 01:07 FINDINGS: Limitations: Motion artifact - mild. Lower thorax: Minimal atelectasis. Coronary artery calcifications. Small hiatal hernia. ABDOMEN: Liver: Unremarkable. No mass. Gallbladder and bile ducts: Calcified gallstones. No significant ductal dilation. Pancreas: No ductal dilation. No mass. Spleen: No splenomegaly. Adrenals: No mass. Kidneys and ureters: Few probable renal cysts. No hydronephrosis. Stomach and bowel: Multiple scattered diverticula within colon. No associated inflammatory stranding. No definite mural thickening. No obstruction. Appendix: No findings to suggest acute appendicitis. PELVIS: Bladder: Unremarkable. Reproductive: Hysterectomy. ABDOMEN and PELVIS: Intraperitoneal space: No significant fluid collection. No free air. Bones/joints: Mild degenerative changes of spine. No acute fracture. Soft tissues: Chronic collapse/occlusion of distal IVC/common iliac veins. Multiple collaterals within abdomen and abdominal wall. Vasculature: Mild atherosclerotic disease. IVC filter. Lymph nodes: No pathologically enlarged lymph nodes. IMPRESSION: 1. Diverticulosis without definite CT evidence of diverticulitis. 2. Incidental/non-acute findings are described above.
[2017-08-23 22:29] VITALS: BP 167/71; PULSE 78; RESP 17
[2017-08-23 22:33] VITALS: TEMP 98.5
[2017-08-24 18:36] VITALS: O2SAT 93
== END 2017-08-23 22:42 | disposition home or self-care (01) ==
LOC: C.ER 15:20
DX: N39.0 Urinary tract infection, site not specified (principal); K80.20 Calculus of gallbladder without cholecystitis without obstruction; R10.13 Epigastric pain; E78.00 Pure hypercholesterolemia, unspecified; I10 Essential (primary) hypertension; Z86.718 Personal history of other venous thrombosis and embolism
CPT/HCPCS: 74177; 80053; 81001; 83690; 85025; 85610; 85730; 87086; 96374; 96375; 99285; J2405; J7040; Q9967

== ENCOUNTER 2017-08-31 15:33 | Emergency (ER) | payer MEDICARE ==
[2017-08-31 16:24] VITALS: BMI 31.9
[2017-08-31] MEDS ORDERED: Aluminum Hydroxide/Magnesium Hydroxide Susp (30 mL) PO STA (17:04)
[2017-08-31] MEDS ORDERED: Belladonna-Phenobarbital PO STA (17:04)
[2017-08-31] MEDS ORDERED: Belladonna-Phenobarbital ONE (17:24)
[2017-08-31] MEDS ORDERED: Aluminum Hydroxide/Magnesium Hydroxide Susp (30 mL) ONE (17:25)
--- NOTE | 2017-08-31 18:00 | C.PDOC ---
History Of Present Illness 76-year-old female, presents to the emergency department with complaints of intermittent left upper quadrant abdominal pain which radiates to the left back over the past several weeks. Pain has become more severe and constant prompting visit. patient seen in ED last week for similar complaint and had CT scan and normal labs. Denies vomiting, diarrhea, trauma, chest pain, shortness of breath or any other associated symptoms. No other complaints at this time. Time Seen by Provider: 08/31/17 16:28 Chief Complaint (Nursing): Abdominal Pain History Per: Patient History/Exam Limitations: no limitations Onset/Duration Of Symptoms: Hrs Current Symptoms Are (Timing): Still Present Severity: Moderate Past Medical History Reviewed: Historical Data, Nursing Documentation, Vital Signs Vital Signs: Last Vital Signs Temp 97.9 F 08/31/17 19:15 Pulse 73 08/31/17 19:15 Resp 19 08/31/17 19:15 BP 141/68 08/31/17 19:15 Pulse Ox 96 09/02/17 00:03 - Medical History PMH: Arthritis, Colonic Polyps, Deep Vein Thrombosis, Fractures (RIGHT ANKLE), Gastritis, HTN, Hypercholesterolemia, Peripheral Edema Surgical History: Endoscopy Family History: States: No Known Family Hx - Social History Hx Tobacco Use: No Hx Alcohol Use: No Hx Substance Use: No - Immunization History Hx Tetanus Toxoid Vaccination: No Hx Influenza Vaccination: Yes Hx Pneumococcal Vaccination: Yes Review Of Systems Except As Marked, All Systems Reviewed And Found Negative. Constitutional: Negative for: Fever Cardiovascular: Negative for: Chest Pain Respiratory: Negative for: Shortness of Breath Gastrointestinal: Positive for: Abdominal Pain Musculoskeletal: Positive for: Back Pain Skin: Negative for: Rash Neurological: Negative for: Weakness, Numbness, Headache, Dizziness Physical Exam - Physical Exam Appears: Non-toxic, No Acute Distress Skin: Normal Color, Warm, Dry, No Rash Head: Atraumatic, Normacephalic Eye(s): bilateral: Normal Inspection, PERRL Nose: Normal Oral Mucosa: Moist Lips: Normal Appearing Neck: Normal ROM Chest: Symmetrical Cardiovascular: Rhythm Regular, No Murmur Respiratory: Normal Breath Sounds, No Accessory Muscle Use Gastrointestinal/Abdominal: Soft, Tenderness (Mild, LUQ), No Distention, No Guarding, No Rebound Extremity: Normal ROM Neurological/Psych: Oriented x3, Normal Speech ED Course And Treatment - Laboratory Results Result Diagrams: 08/31/17 18:05 08/31/17 18:05 O2 Sat by Pulse Oximetry: 96 (RA) Pulse Ox Interpretation: Normal Medical Decision Making Medical Decision Making: Plan: * EKG * Labs * XR Obstructive Series * x2, Protonix, Zofran * Reassess and Disposition Old records reviewed, the patient was seen in the ED for similar symptoms several days prior. Had CT scan and lab work which was negative. Labs were repeated and obstructive series is negative. On re-exam, the patient reports improvement of symptoms. Lungs are CTA, heart is RRR, abdomen is soft, non-tender and the patient is tolerating PO well. Ambulatory in the ED with steady gait. Follow up with the medical doctor within 1-2 days without fail. Return if worsened. Disposition - Disposition Referrals: Brayan Barclay MD [Staff Provider] - Disposition: HOME/ ROUTINE Disposition Time: 18:45 Condition: FAIR Additional Instructions: Follow up with the medical doctor within 1-2 days without fail. Return if worsened. Prescriptions: Famotidine [Pepcid] 20 mg PO BID #20 tab Omeprazole 20 mg PO DAILY #15 capsule.dr Instructions: Acute Abdomen (Belly Pain), Adult (DC) Forms: [employer] (Lao) - Clinical Impression Clinical Impression: Abdominal pain - Scribe Statement The provider has reviewed the documentation as recorded by the Scribe (Bernard Doan) All medical record entries made by the Scribe were at my direction and personally dictated by me. I have reviewed the chart and agree that the record accurately reflects my personal performance of the history, physical exam, medical decision making, and the department course for this patient. I have also personally directed, reviewed, and agree with the discharge instructions and disposition.
[2017-08-31 18:08] LABS: BASO % 0.5 % (0.0-2.0); EOS % 0.6 % (0.0-4.0); HEMOGLOBIN 13.4 g/dL (11.0-16.0); LYMPH # 0.7 K/uL (1.0-4.3); LYMPH % 9.9 % (20.0-40.0); MEAN CELL VOLUME 92.6 fL (81.0-99.0); MEAN CORPUSCULAR HEMOGLOBIN 30.8 pg (27.0-31.0); MEAN CORPUSCULAR HGB CONC 33.3 g/dL (33.0-37.0); MEAN PLATELET VOLUME 8.5 fL (7.2-11.7); MONO # 0.3 K/uL (0.0-0.8); MONO % 4.3 % (0.0-10.0); NEUT % 84.7 % (50.0-75.0); NRBC % 0.1 % (0.0-2.0); PLATELET COUNT 168 K/uL (130-400); RBC 4.35 Mil/uL (3.80-5.20); RED CELL DISTRIBUTION WIDTH 17.8 % (11.5-14.5); WHITE BLOOD COUNT 7.1 K/uL (4.8-10.8)
[2017-08-31 18:23] LABS: ALB/GLOB RATIO 1.4 (1.0-2.1); ALBUMIN 4.2 g/dL (3.5-5.0); ALT/SGPT 24 U/L (9-52); AST/SGOT 21 U/L (14-36); BLOOD UREA NITROGEN 28 mg/dL (7-17); CALCIUM 9.6 mg/dl (8.6-10.4); GFR AFRICAN-AMERICAN > 60; GFR NON-AFRICAN AMERICAN > 60; LIPASE 133 U/L (23-300)
[2017-08-31 19:11] LABS: ANISOCYTOSIS SLIGHT; EOSINOPHIL 1 % (0-4); LYMPHOCYTE 11 % (20-40); MONOCYTE 5 % (0-10); NEUTROPHIL 83 % (50-75); PLATELET ESTIMATE NORMAL (NORMAL); TOTAL CELLS COUNTED 100
[2017-08-31 19:16] VITALS: BP 141/68; PULSE 73; RESP 19; TEMP 97.9
--- NOTE | 2017-09-01 08:50 | RAD ---
PROCEDURE: Radiographs of the chest and abdomen (obstructive series) HISTORY: abd pain COMPARISON: No prior. TECHNIQUE: AP radiograph of the chest, with upright and supine radiographs of the abdomen. FINDINGS: CHEST: Lungs: Clear. Cardiovascular: Normal size heart. No pulmonary vascular congestion. Pleura: No pleural fluid. No pneumothorax. Other findings: None. ABDOMEN AND PELVIS: Bowel: Mild constipation, otherwise unremarkable bowel gas pattern. No evidence of mechanical obstruction. Free air: None. Bones: Unremarkable. Other findings: IVC filter. Postsurgical changes noted at the left pelvic side wall IMPRESSION: Mild constipation, otherwise unremarkable radiographs of chest and abdomen. No evidence of mechanical bowel obstruction.
[2017-09-02 00:01] VITALS: O2SAT 96
--- NOTE | 2017-09-03 12:54 | CARD ---
APPROVED REPORT EKG Measurement Heart [id number] [id number] <Conclusion> Normal sinus rhythm Normal ECG
== END 2017-08-31 19:49 | disposition home or self-care (01) ==
LOC: C.ER 15:33
DX: R10.9 Unspecified abdominal pain (principal); I10 Essential (primary) hypertension; E78.00 Pure hypercholesterolemia, unspecified; Z86.718 Personal history of other venous thrombosis and embolism
CPT/HCPCS: 74022; 80053; 83605; 83690; 84484; 85025; 93005; 96374; 96375; 99285; C9113; J2405

== ENCOUNTER 2017-10-26 07:41 | Emergency (ER) | payer MEDICARE ==
[2017-10-26 07:49] VITALS: BMI 32.2
[2017-10-26 07:58] VITALS: BP 175/84; PULSE 70; RESP 18; TEMP 98; O2SAT 98
--- NOTE | 2017-10-26 08:37 | C.PDOC ---
History Of Present Illness 76 Y/O FEMALE PRESENTS TO ED WITH COMPLAINTS OF NEW ONSET RASH L LOWER BACK/L ABD WALL X 1 WEEK. PATIENT STATES INITIALLY W [place], "FEELING BLAH" 2 WEEKS AGO. FELT DISCOMFORT TO AREA THIS WEEK CONSISTENT WITH NEW ONSET RASH. PATIENT DENIES FEVER OR OTHER ASSOCIATED SYMPTOMS. EXAM NAD NONTOXIC SKIN LESIONS L MID BACK AND L LOWER ABD WALL JUST LATERAL TO MIDLINE C/F SHINGLES. NO DC, CELLULITIS. REMAINDER NEG MDM CONTACT PRECAUTIONS, STEROID, PAIN RX FU PMD Time Seen by Provider: 10/26/17 08:03 Chief Complaint (Nursing): Abnormal Skin Integrity History Per: Patient History/Exam Limitations: no limitations Onset/Duration Of Symptoms: Days Current Symptoms Are (Timing): Still Present Past Medical History Reviewed: Historical Data, Nursing Documentation, Vital Signs Vital Signs: Last Vital Signs Temp 98 F 10/26/17 07:52 Pulse 70 10/26/17 07:52 Resp 18 10/26/17 07:52 BP 175/84 H 10/26/17 07:52 Pulse Ox 98 10/26/17 08:39 - Medical History PMH: Arthritis, Colonic Polyps, Deep Vein Thrombosis, Fractures (RIGHT ANKLE), Gastritis, HTN, Hypercholesterolemia, Peripheral Edema Surgical History: Endoscopy Family History: States: No Known Family Hx - Social History Hx Tobacco Use: No Hx Alcohol Use: No Hx Substance Use: No - Immunization History Hx Tetanus Toxoid Vaccination: No Hx Influenza Vaccination: Yes Hx Pneumococcal Vaccination: Yes (2017) Review Of Systems Constitutional: Negative for: Fever, Chills Cardiovascular: Negative for: Chest Pain Respiratory: Negative for: Shortness of Breath Gastrointestinal: Negative for: Nausea, Vomiting Skin: Positive for: Rash Physical Exam - Physical Exam Appears: Non-toxic, No Acute Distress Skin: Warm, Dry, Rash (Skin lesions to Left mid back and Left lower back wall just lateral to midline concern for shingles. No discharge. No cellulitis) Head: Atraumatic, Normacephalic Eye(s): bilateral: Normal Inspection Oral Mucosa: Moist Throat: Normal, No Erythema, No Exudate Neck: Normal ROM, Supple Cardiovascular: Rhythm Regular Respiratory: Normal Breath Sounds, No Rales, No Rhonchi, No Wheezing Gastrointestinal/Abdominal: Soft, No Tenderness, No Guarding, No Rebound Extremity: Normal ROM, Capillary Refill (<2 seconds) Neurological/Psych: Oriented x3, Normal Speech, Normal Cognition ED Course And Treatment O2 Sat by Pulse Oximetry: 98 (RA) Pulse Ox Interpretation: Normal Medical Decision Making Medical Decision Making: PROGRESS: CONTACTED PRECAUTIONS, GIVEN STEROIDS. PATIENT DISCHARGED WITH PAIN MEDICATION RX AND FOLLOW UP WITH PMD. Disposition Counseled Patient/Family Regarding: Diagnosis, Need For Followup, Rx Given - Disposition Referrals: YOUR,PMD [Other] Disposition: HOME/ ROUTINE Disposition Time: 08:37 Condition: IMPROVED Prescriptions: Gabapentin [Neurontin] 300 mg PO TID #30 cap Lidocaine 5% [Lidoderm] 1 ea TD PRN PRN #10 patch PRN Reason: Pain, Moderate (4-7) predniSONE [Prednisone] 60 mg PO DAILY #15 tab Instructions: Vicky (DC) Forms: [employer] (Italian) - Clinical Impression Clinical Impression: Shingles - Scribe Statement The provider has reviewed the documentation as recorded by the Scribdonna Tariq All medical record entries made by the Scribe were at my direction and personally dictated by me. I have reviewed the chart and agree that the record accurately reflects my personal performance of the history, physical exam, medical decision making, and the department course for this patient. I have also personally directed, reviewed, and agree with the discharge instructions and disposition.
[2017-10-26] MEDS ORDERED: Lidocaine 5% Patch TD STA (08:40)
[2017-10-26] MEDS ORDERED: Lidocaine 5% Patch TD ONE (08:52)
== END 2017-10-26 08:57 | disposition home or self-care (01) ==
LOC: C.ER 07:41
DX: B02.9 Zoster without complications (principal)

== ENCOUNTER 2017-11-26 16:14 | Observation (INO) | payer MEDICARE ==
[2017-11-26 17:07] LABS: BASO # 0.1 K/uL (0.0-0.2); BASO % 0.8 % (0.0-2.0); EOS % 0.1 % (0.0-4.0); HEMOGLOBIN 12.9 g/dL (11.0-16.0); LYMPH # 0.8 K/uL (1.0-4.3); LYMPH % 9.6 % (20.0-40.0); MEAN CELL VOLUME 93.9 fL (81.0-99.0); MEAN CORPUSCULAR HEMOGLOBIN 31.4 pg (27.0-31.0); MEAN CORPUSCULAR HGB CONC 33.4 g/dL (33.0-37.0); MEAN PLATELET VOLUME 8.3 fL (7.2-11.7); MONO # 0.3 K/uL (0.0-0.8); MONO % 3.7 % (0.0-10.0); NEUT % 85.8 % (50.0-75.0); NRBC % 0.1 % (0.0-2.0); PLATELET COUNT 189 K/uL (130-400); RED CELL DISTRIBUTION WIDTH 16.6 % (11.5-14.5); WHITE BLOOD COUNT 8.2 K/uL (4.8-10.8)
[2017-11-26 17:22] LABS: INR 2.5; PROTHROMBIN TIME 27.9 SECONDS (9.7-12.2)
[2017-11-26 17:30] LABS: ALB/GLOB RATIO 1.5 (1.0-2.1); ALBUMIN 4.3 g/dL (3.5-5.0); ALT/SGPT 15 U/L (9-52); AST/SGOT 21 U/L (14-36); BLOOD UREA NITROGEN 26 mg/dL (7-17); CALCIUM 9.8 mg/dl (8.6-10.4); GFR AFRICAN-AMERICAN > 60; GFR NON-AFRICAN AMERICAN > 60
--- NOTE | 2017-11-26 17:32 | RAD ---
PROCEDURE: CHEST RADIOGRAPH, 1 VIEW HISTORY: SOB COMPARISON: Chest radiograph dated 05/09/2017. FINDINGS: LUNGS: Clear. PLEURA: No pneumothorax or pleural fluid seen. CARDIOVASCULAR: Atherosclerotic aortic calcifications. Cardiomediastinal silhouette within normal limits. OSSEOUS STRUCTURES: Unchanged. VISUALIZED UPPER ABDOMEN: Normal. OTHER FINDINGS: None. IMPRESSION: No active disease.
[2017-11-26 17:37] LABS: CK-MB 0.49 ng/mL (0.0-3.38)
[2017-11-26 17:38] LABS: LYMPHOCYTE 7 % (20-40); MONOCYTE 3 % (0-10); NEUTROPHIL 90 % (50-75); PLATELET ESTIMATE NORMAL (NORMAL); TOTAL CELLS COUNTED 100
[2017-11-26 17:39] LABS: ANISOCYTOSIS SLIGHT
[2017-11-26 17:57] LABS: B-TYPE NATRIURETIC PEPTIDE 251 pg/mL (0-900)
--- NOTE | 2017-11-26 18:08 | C.PDOC ---
History Of Present Illness 77 yo female with PMH DVT, HTN, c/o sob that started 2 hours ago. Pt notes that she was walking home from her doctors office two blocks when she started to feel her heart beating fast associated with sob. Then she got midsternal "pressure" radiating to her back and left shoulder. H/o cardiac cath in 2014 with no stents. Denies cough, fever, leg swelling or pain, headache, or dizziness. Time Seen by Provider: 11/26/17 16:28 Chief Complaint (Nursing): Shortness Of Breath History Per: Patient History/Exam Limitations: no limitations Onset/Duration Of Symptoms: Hrs Current Symptoms Are (Timing): Better Past Medical History Vital Signs: Last Vital Signs Temp 98.5 F 11/26/17 16:24 Pulse 100 H 11/26/17 16:24 Resp 22 11/26/17 16:24 BP 196/102 H 11/26/17 16:24 Pulse Ox 100 11/26/17 18:08 - Medical History PMH: Arthritis, Colonic Polyps, Deep Vein Thrombosis, Fractures (RIGHT ANKLE), Gastritis, HTN, Hypercholesterolemia, Peripheral Edema Denies: Chronic Kidney Disease Surgical History: Endoscopy Family History: States: MS (father ), CAD, Hypertension - Social History Hx Tobacco Use: No Hx Alcohol Use: No Hx Substance Use: No - Immunization History Hx Tetanus Toxoid Vaccination: No Hx Influenza Vaccination: Yes Hx Pneumococcal Vaccination: Yes (2017) Review Of Systems Except As Marked, All Systems Reviewed And Found Negative. Cardiovascular: Positive for: Chest Pain Respiratory: Positive for: Shortness of Breath, SOB with Excertion Physical Exam - Physical Exam Appears: Well, Non-toxic, No Acute Distress, Other (anxious) Skin: Normal Color, Warm, Dry Head: Atraumatic, Normacephalic Eye(s): bilateral: Normal Inspection, EOMI Nose: Normal Oral Mucosa: Moist Throat: Normal Neck: Normal, Normal ROM, Supple Chest: Symmetrical Cardiovascular: Rhythm Regular Respiratory: Normal Breath Sounds, No Accessory Muscle Use Gastrointestinal/Abdominal: Normal Exam Back: Normal Inspection Extremity: Normal ROM, No Pedal Edema, No Calf Tenderness, No Swelling Extremity: Bilateral: Atraumatic Neurological/Psych: Oriented x3, Normal Speech, Normal Cognition ED Course And Treatment - Laboratory Results Result Diagrams: 11/26/17 17:04 11/26/17 17:04 ECG: Interpreted By Me (Dr Temple), Viewed By Me ECG Rhythm: Sinus Rhythm Rate From EC O2 Sat by Pulse Oximetry: 100 - Radiology CXR: Interpreted by Me, Viewed By Me CXR Interpretation: Yes: No Acute Disease Progress Note: Aspirin ordered. On reevaluation, pt notes pain has resolved. Case discussed with Dr Baker, covering for Zenia Agustin, who agreed upon admission and requires Dr James for consult. Disposition - Disposition Disposition: HOSPITALIZED Disposition Time: 18:10 Condition: STABLE Forms: [employer] (Telugu) - Clinical Impression Clinical Impression: Chest pain, SOB (shortness of breath)
--- NOTE | 2017-11-26 19:24 | CP.PCM.CON ---
History of Present Illness - History of Present Illness History of Present Illness: I was asked to evaluate patient by Dr Alex. I am covering for Dr Rizzo. Patient is a 77 year old female with PMH HTN, hypercholesterolemia, DVT who presnets with dyspnea. Patient had had recent episodes of hypertension, and was noted to have progressive dsypnea. Today she became concerned and came to the ER. She felt palpitations. CArdiac cath performed in 2014 revealed no signficant CAD. Review of Systems - Constitutional Constitutional: absent: As Per HPI, Anorexia, Chills, Daytime Sleepiness, Excessive Sweating, Fatigue, Fever, Frequent Falls, Headache, Increased Appetite , Lethargy, Malaise, Night Sweats, Snoring, Sleep Apnea, Weight Gain, Weight Loss, Weakness, Other - EENT Eyes: absent: As Per HPI, Blind Spots, Blurred Vision, Change in Vision, Decreased Night Vision, Diplopia, Discharge, Dry Eye, Exophthalmos, Floaters, Irritation, Itchy Eyes, Loss of Peripheral Vision, Pain, Photophobia, Requires Corrective Lenses, Sees Flashes, Spots in Vision, Tunnel Vision, Other Visual Disturbances, Loss of Vision, Other Ears: absent: As Per HPI, Decreased Hearing, Ear Discharge, Ear Pain, Tinnitus, Abnormal Hearing, Disequilibrium, Dizziness, Other Nose/Mouth/Throat: absent: As Per HPI, Epistaxis, Nasal Congestion, Nasal Discharge, Nasal Obstruction, Nasal Trauma, Nose Pain, Post Nasal Drip, Sinus Pain, Sinus Pressure, Bleeding Gums, Change in Voice, Dental Pain, Dry Mouth, Dysphagia, Halitosis, Hoarsness, Lip Swelling, Mouth Lesions, Mouth Pain, Odynophagia, Sore Throat, Throat Swelling, Tongue Swelling, Facial Pain, Neck Pain, Neck Mass, Other - Cardiovascular Cardiovascular: Dyspnea, Palpitations - Respiratory Respiratory: Dyspnea - Gastrointestinal Gastrointestinal: absent: As Per HPI, Abdominal Pain, Belching, Bloating, Change in Bowel Habits, Change in Stool Character, Coffee Ground Emesis, Constipation, Cramping, Diarrhea, Dyspepsia, Dysphagia, Early Satiety, Excessive Flatus, Fecal Incontinence, Heartburn, Hematemesis, Hematochezia, Loose Stools, Melena, Nausea, Odynophagia, Temesmus, Vomiting, Other - Genitourinary Genitourinary: absent: As Per HPI, Change in Urinary Stream, Difficulty Urinating, Dysuria, Flank Pain, Hematuria, Pyuria, Nocturia, Urinary Incontinence, Urinary Frequency, Urinary Hesitance, Urinary Urgency, Voiding Freq/Small Amts, Freq UTI, Hx Renal/Bladder Calculi, Hx /Renal Surgery, Bladder Distension, Other - Musculoskeletal Musculoskeletal: absent: As Per HPI, Abnormal Gait, Arthralgias, Atrophy, Back Pain, Deformity, Joint Swelling, Limited Range of Motion, Loss of Height, Muscle Cramps, Muscle Weakness, Myalgias, Neck Pain, Numbness, Radiating Pain into Limb, Stiffness, Tingling, Other - Integumentary Integumentary: absent: As Per HPI, Acne, Alopecia, Bleeding Lesions, Change in Hair, Change in Nails, Change in Pigmentation, Changing Lesions, Dry Skin, Erythema, Furuncle, Hirsutism, Lesions, New Lesions, Non-Healing Lesions, Photosensitivity, Pruritus, Rash, Skin Pain, Skin Ulcer, Sores, Striae, Swelling , Unusual Bruising, Wounds, Jaundice, Other - Neurological Neurological: absent: As Per HPI, Abnormal Gait, Abnormal Hearing, Abnormal Movements, Abnormal Speech, Behavioral Changes, Burning Sensations, Confusion, Convulsions, Disequilibrium, Dizziness, Numbness, Focal Weakness, Frequent Falls , Headaches, Lack of Coordination, Loss of Vision, Memory Loss, Paresthesias, Radicular Pain, Restless Legs, Sensory Deficit, Syncope, Tingling, Tremor, Vertigo, Weakness, Other Visual Disturbances, Other - Psychiatric Psychiatric: absent: As Per HPI, Abnormal Sleep Pattern, Anhedonia, Anxiety, Auditory Hallucinations, Behavioral Changes, Change in Appetite, Change in Libido, Confusion, Depression, Difficulty Concentrating, Hallucinations, Homicidal Ideation, Hopelessness, Irritability, Memory Loss, Mood Swings, Panic Attacks, Paranoia, Suicidal Ideation, Visual Hallucinations, Tactile Hallucinations, Other - Endocrine Endocrine: absent: As Per HPI, Change in Body Appearance, Change in Libido, Cold Intolorance, Deepening of Voice, Excessive Sweating, Fatigue, Flushing, Heat Intolorance, Increase in Ring/Shoe/Hat Size, Palpitations, Polydipsia, Polyphagia, Polyuria, Other - Hematologic/Lymphatic Hematologic: absent: As Per HPI, Easy Bleeding, Easy Bruising, Lymphadenopathy, Other Past Patient History - Infectious Disease Hx of Infectious Diseases: None - Past Medical History & Family History Past Medical History?: Yes - Past Social History Smoking Status: Never Smoked - CARDIAC Hx Hypercholesterolemia: Yes Hx Hypertension: Yes Hx Peripheral Edema: Yes - PULMONARY Hx Respiratory Disorders: No - NEUROLOGICAL Hx Neurological Disorder: No - HEENT Hx HEENT Problems: No - RENAL Hx Chronic Kidney Disease: No - ENDOCRINE/METABOLIC Hx Endocrine Disorders: No - HEMATOLOGICAL/ONCOLOGICAL Hx Blood Disorders: No - INTEGUMENTARY Hx Dermatological Problems: No - MUSCULOSKELETAL/RHEUMATOLOGICAL Hx Arthritis: Yes Hx Fractures: Yes (RIGHT ANKLE) - GASTROINTESTINAL Hx Gastritis: Yes - GENITOURINARY/GYNECOLOGICAL Hx Genitourinary Disorders: No - PSYCHIATRIC Hx Substance Use: No - SURGICAL HISTORY Other/Comment: venous filter in R leg - ANESTHESIA Hx Anesthesia: Yes Hx Anesthesia Reactions: No Hx Malignant Hyperthermia: No Meds Allergies/Adverse Reactions: Allergies Allergy/AdvReac Type Severity Reaction Status Date / Time No Known Allergies Allergy Verified 11/26/17 16:44 Physical Exam - Constitutional Appears: Non-toxic - Head Exam Head Exam: NORMAL INSPECTION - Eye Exam Eye Exam: Normal appearance - ENT Exam ENT Exam: Mucous Membranes Moist - Neck Exam Neck exam: Positive for: Normal Inspection - Respiratory Exam Respiratory Exam: Decreased Breath Sounds - Cardiovascular Exam Cardiovascular Exam: REGULAR RHYTHM - GI/Abdominal Exam GI & Abdominal Exam: Normal Bowel Sounds - Rectal Exam Rectal Exam: Deferred - Extremities Exam Extremities exam: Positive for: pedal edema - Back Exam Back exam: NORMAL INSPECTION - Neurological Exam Neurological exam: Alert, Oriented x3 - Psychiatric Exam Psychiatric exam: Normal Affect - Skin Skin Exam: Normal Color Results - Vital Signs Recent Vital Signs: Last Vital Signs Temp 98.5 F 11/26/17 16:24 Pulse 100 H 11/26/17 16:24 Resp 22 11/26/17 16:24 BP 174/75 H 11/26/17 18:28 Pulse Ox 100 11/26/17 18:26 - Labs Result Diagrams: 11/26/17 17:04 11/26/17 17:04 Labs: Laboratory Results - last 24 hr 11/26/17 11/26/17 11/26/17 17:04 17:04 17:04 WBC 8.2 RBC 4.10 Hgb 12.9 Hct 38.5 MCV 93.9 MCH 31.4 H MCHC 33.4 RDW 16.6 H Plt Count 189 MPV 8.3 Neut % (Auto) 85.8 H Lymph % (Auto) 9.6 L [place] % (Auto) 3.7 Eos % (Auto) 0.1 Baso % (Auto) 0.8 Neut # (Auto) 7.0 Lymph # (Auto) 0.8 L [place] # (Auto) 0.3 Eos # (Auto) 0.0 Baso # (Auto) 0.1 Neutrophils % (Manual) 90 H Lymphocytes % (Manual) 7 L Monocytes % (Manual) 3 Platelet Estimate Normal Anisocytosis (manual) Slight PT 27.9 H INR 2.5 APTT 43 H Sodium 138 Potassium 4.8 Chloride 98 Carbon Dioxide 27 Anion Gap 18 BUN 26 H Creatinine 0.8 Est GFR ( Amer) > 60 Est GFR (Non-Af Amer) > 60 Random Glucose 134 H Calcium 9.8 Total Bilirubin 0.8 AST 21 ALT 15 Alkaline Phosphatase 81 Total Creatine Kinase 39 CK-MB (Mass) 0.49 Troponin I < 0.0120 NT-Pro-B Natriuret Pep 251 Total Protein 7.2 Albumin 4.3 Globulin 2.9 Albumin/Globulin Ratio 1.5 - EKG Data EKG Interpreted by: Myself EKG shows normal: Sinus rhythm Assessment & Plan (1) SOB (shortness of breath) Assessment and Plan: unclear etiology. recommend echocardiogram Status: Acute (2) Hypertension Assessment and Plan: will need blood pressure control Status: Acute
[2017-11-26] MEDS ORDERED: Home Med 1 UNIT (Atorvastatin [Lipitor] 10 MG) PO SCH (21:00)
[2017-11-27 01:37] VITALS: RESP 20
[2017-11-27 07:43] LABS: INR 2.5
[2017-11-27] MEDS: diltiaZEM 180 mg/24 Hours CD Cap PO SCH (09:14)
[2017-11-27] MEDS: Pantoprazole 40 mg EC Tab PO SCH (09:14)
--- NOTE | 2017-11-27 10:00 | CP.PCM.PN ---
Subjective - Date & Time of Evaluation Date of Evaluation: 11/27/17 Time of Evaluation: 09:50 - Subjective Subjective: no current chest pain. has no dyspnea at rest. Objective - Vital Signs/Intake and Output Vital Signs (last 24 hours): Temp Pulse Resp BP Pulse Ox 98.2 F 68 20 163/89 H 99 11/27/17 07:30 11/27/17 07:30 11/27/17 07:30 11/27/17 09:14 11/27/17 07:30 Intake and Output: 11/27/17 11/27/17 06:59 18:59 Intake Total 150 Balance 150 - Medications Medications: Current Medications Diltiazem HCl (Cardizem Cd) 180 mg PO DAILY [facility] Last Admin: 11/27/17 09:14 Dose: 180 mg Metoprolol Tartrate (Lopressor) 25 mg PO BID [facility] Last Admin: 11/27/17 09:14 Dose: 25 mg Pantoprazole Sodium (Protonix Ec Tab) 40 mg PO DAILY [facility] Last Admin: 11/27/17 09:14 Dose: 40 mg Rosuvastatin Calcium (Crestor) 5 mg PO DIN [facility] Warfarin Sodium (Coumadin) 3 mg PO DIN [facility] - Labs Labs: 11/26/17 17:04 11/26/17 17:04 PT 27.0 SECONDS (9.7-12.2) H 11/27/17 07:29 INR 2.5 11/27/17 07:29 APTT 43 SECONDS (21-34) H 11/27/17 07:29 - Constitutional Appears: Non-toxic - Head Exam Head Exam: NORMAL INSPECTION - Eye Exam Eye Exam: Normal appearance - ENT Exam ENT Exam: Mucous Membranes Moist - Neck Exam Neck Exam: Normal Inspection - Respiratory Exam Respiratory Exam: NORMAL BREATHING PATTERN - Cardiovascular Exam Cardiovascular Exam: REGULAR RHYTHM - GI/Abdominal Exam GI & Abdominal Exam: Normal Bowel Sounds - Rectal Exam Rectal Exam: Deferred - Extremities Exam Extremities Exam: Pedal Edema - Back Exam Back Exam: NORMAL INSPECTION - Neurological Exam Neurological Exam: Alert - Psychiatric Exam Psychiatric exam: Normal Affect - Skin Skin Exam: Normal Color Assessment and Plan (1) SOB (shortness of breath) Assessment & Plan: recommend echocardiogram. alexley CAD given normal cath in 2015. Hoevere given negative troponin, can likely d/c home today and have outpatient stress test with Dr Rizzo. Status: Acute (2) Hypertension Assessment & Plan: adjust medical therapy Status: Acute
--- NOTE | 2017-11-27 10:08 | CP.PCM.PN ---
Subjective - Date & Time of Evaluation Date of Evaluation: 11/27/17 Time of Evaluation: 10:15 Objective - Vital Signs/Intake and Output Vital Signs (last 24 hours): Temp Pulse Resp BP Pulse Ox 98.2 F 68 20 163/89 H 99 11/27/17 07:30 11/27/17 07:30 11/27/17 07:30 11/27/17 09:14 11/27/17 07:30 Intake and Output: 11/27/17 11/27/17 06:59 18:59 Intake Total 150 Balance 150 - Medications Medications: Current Medications Diltiazem HCl (Cardizem Cd) 180 mg PO DAILY [facility] Last Admin: 11/27/17 09:14 Dose: 180 mg Metoprolol Tartrate (Lopressor) 25 mg PO BID [facility] Last Admin: 11/27/17 09:14 Dose: 25 mg Pantoprazole Sodium (Protonix Ec Tab) 40 mg PO DAILY [facility] Last Admin: 11/27/17 09:14 Dose: 40 mg Rosuvastatin Calcium (Crestor) 5 mg PO DIN [facility] Warfarin Sodium (Coumadin) 3 mg PO DIN [facility] - Labs Labs: 11/26/17 17:04 11/26/17 17:04 PT 27.0 SECONDS (9.7-12.2) H 11/27/17 07:29 INR 2.5 11/27/17 07:29 APTT 43 SECONDS (21-34) H 11/27/17 07:29
--- NOTE | 2017-11-27 14:12 | CARD ---
APPROVED REPORT EXAM: Two-dimensional and M-mode echocardiogram with Doppler and color Doppler. Other Information Quality : GoodRhythm : INDICATION Dizziness and Vertigo Dyspnea RISK FACTORS Hypertension 2D DIMENSIONS IVSd0.8 (0.7-1.1cm)LVDd4.4 (3.9-5.9cm) PWd0.6 (0.7-1.1cm)LVDs2.8 (2.5-4.0cm) FS (%) 37.0 %LVEF (%)67.1 (>50%) M-Mode DIMENSIONS Left Atrium (MM)4.36 (2.5-4.0cm)Aortic Root2.81 (2.2-3.7cm) Aortic Cusp Exc.1.88 (1.5-2.0cm) Mitral Valve MV E Ilsmilbk93.7cm/sMV A Jaadbopl276.8cm/sE/A ratio0.6 TDI E/Lateral E'0.0E/Medial E'0.0 Tricuspid Valve TR Peak [id number]/sTR Peak Gr.34ntCpHJHM68kjPa LEFT VENTRICLE The left ventricle is normal size. There is normal left ventricular wall thickness. The left ventricular function is normal. The left ventricular ejection fraction is within the normal range. There is normal LV segmental wall motion. Transmitral Doppler flow pattern is Grade I-abnormal relaxation pattern. RIGHT VENTRICLE The right ventricle is normal size. There is normal right ventricular wall thickness. The right ventricular systolic function is normal. ATRIA The left atrium is borderline dilated. The right atrium size is normal. The atrial septum is aneurysmal. AORTIC VALVE The aortic valve is mildly thickened. No aortic regurgitation is present. There is no aortic valvular stenosis. MITRAL VALVE The mitral valve is mildly thickened. There is no mitral valve stenosis. Mitral regurgitation is mild. TRICUSPID VALVE There is mild tricuspid regurgitation. There is mild pulmonary hypertension. PULMONIC VALVE There is mild pulmonic valvular regurgitation. GREAT VESSELS The aortic root is normal in size. The IVC is normal in size and collapses >50% with inspiration. PERICARDIAL EFFUSION There is no pericardial effusion. <Conclusion> The left ventricle is normal size. There is normal left ventricular wall thickness. The left ventricular function is normal. The left ventricular ejection fraction is within the normal range. There is normal LV segmental wall motion. Transmitral Doppler flow pattern is Grade I-abnormal relaxation pattern. Mitral regurgitation is mild. There is mild tricuspid regurgitation. There is mild pulmonary hypertension. The atrial septum is aneurysmal.
--- NOTE | 2017-11-27 15:09 | CARD ---
APPROVED REPORT EKG Measurement Heart [id number] <Conclusion> Normal sinus rhythm with sinus arrhythmia Normal ECG
[2017-11-27] MEDS ORDERED: Rosuvastatin Calcium 2.5 mg Tab PO SCH (22:00)
--- NOTE | 2017-11-27 22:02 | HP ---
CHIEF COMPLAINT: Dyspnea on exertion while she was walking home yesterday. HISTORY OF PRESENT ILLNESS: Ms. Yoon is a 77-year-old female with past medical history of hypertension, hyperlipidemia, history of right leg DVT, status post IVC filter placement, on long-term anticoagulation who has been following up with Dr. Kit Rizzo as primary care physician, came into the ED with sudden onset of shortness of breath. She was walking home from the doctor's about two blocks, also carrying about 5 pounds of groceries in her hand. The shortness of breath was worse after getting into her apartment. She felt pressure like in the anterior retrosternal region and also felt pain in the back. Her shortness of breath got better after she rested. She never had similar pain for which she came into the ED for further evaluation. The patient claims that she had all the cardiac workup done in the past in 2014, underwent cardiac catheterization, stress test and echo. Her cath was normal. She claims that she feels palpitations in her chest more so when it was in the house. Denies any headache. Denies any dizziness. Denies any chest pain at the present time. Denies any nausea, vomiting, abdominal pain, diarrhea or constipation. Denies any urinary complaints. Denies any leg pains or leg cramps. Denies any other neurologic symptoms. PAST MEDICAL HISTORY: As described hypertension, hyperlipidemia, history of DVT, status post cardiac catheterization. PAST SURGICAL HISTORY: Underwent IVC filter placement in 2006, cardiac catheterization in 2014, hysterectomy in 1992 for fibroid uterus. FAMILY HISTORY: [place] in father who in his 60s. Mother is 80, she had hypertension and congestive heart failure. She is a single child without having any siblings. PERSONAL HISTORY: She is single. Retired RN. She lives alone, not having any children. SOCIAL HISTORY: No smoking, alcohol, or drug abuse. ALLERGIES: NO KNOWN DRUG ALLERGIES. MEDICATIONS: Include, 1. Cardizem CD 180 mg daily. 2. Metoprolol 25 mg p.o. two times daily. 3. Coumadin 3 mg daily. 4. Lipitor 10 mg daily. 5. Protonix 40 mg daily. REVIEW OF SYSTEMS: As described in history of present illness. All other systems are reviewed and was found to be negative. PHYSICAL EXAMINATION: GENERAL: Elderly female, lying in bed, in no acute distress. VITAL SIGNS: Blood pressure 163/89, temperature 98.3 degrees Fahrenheit, pulse 82, respirations 18, O2 saturation is 97% on room air. HEENT: Pupils are equal, round, and reactive to light and accommodation. Extraocular muscles are intact. No icterus. No pallor. No oral thrush. No pharyngeal congestion. NECK: Supple. No JVD. No thyromegaly. CHEST: Moving equally. Bilateral lung aspiration. LUNGS: Bilateral vesicular breath sounds. No wheezing. No rhonchi. CVS: S1, S2 present. Regular. ABDOMEN: Soft and nontender. Bowel sounds are present. No guarding. No rigidity. No rebound tenderness noted. EXPERT WITNESS: Alert, awake, and oriented x3. No focal deficits noted. EXTREMITIES: No edema. Palpable peripheral pulses. LABORATORY DATA: Labs done from the ED, WBC 8.2, hemoglobin 12.9, hematocrit 38.5, platelets 189. PT 27.9, INR 2.5, PTT 43. Sodium 138, potassium 4.8, chloride 98, bicarbonate 27, creatinine 0.8, glucose 134, calcium 9.8, total bilirubin 0.8, AST 21, ALT 15, alkaline phosphatase 81. Cardiac enzymes were negative. ProBNP negative. Total protein 7.2, albumin 4.5. Chest x-ray negative for any infiltrates. EKG normal sinus rhythm. No acute ST-T changes noted. ASSESSMENT AND PLAN: Elderly female with history of hypertension, hyperlipidemia, history of deep venous thrombosis on long-term anticoagulation who has been following up with Dr. Kit Rizzo, admitted for dyspnea on exertion and patient with multiple risk factors even though prior catheterization is negative and other cardiac workup was negative. We will admit the patient to rule out acute coronary syndrome. 1. Sudden onset of dyspnea on exertion with chest pressure, rule out coronary artery disease, rule out acute coronary syndrome. 2. Uncontrolled hypertension. 3. History of deep venous thrombosis. 4. History of hyperlipidemia. PLAN: The patient is being admitted to telemetry. We will follow serial cardiac enzymes, serial EKGs, echocardiogram. Cardiology input appreciated. Blood pressure is still high. We will adjust her medication. Repeat labs in the morning. We will continue Coumadin. We will add further recommendation as her clinical course progresses. Martín Ma MD [facility] # [id number]
[2017-11-28 04:24] VITALS: O2SAT 98
[2017-11-28 07:00] LABS: BASO % 0.2 % (0.0-2.0); EOS % 0.1 % (0.0-4.0); HEMOGLOBIN 12.9 g/dL (11.0-16.0); LYMPH # 1.4 K/uL (1.0-4.3); LYMPH % 19.6 % (20.0-40.0); MEAN CELL VOLUME 93.3 fL (81.0-99.0); MEAN CORPUSCULAR HEMOGLOBIN 31.9 pg (27.0-31.0); MEAN CORPUSCULAR HGB CONC 34.2 g/dL (33.0-37.0); MEAN PLATELET VOLUME 8.6 fL (7.2-11.7); MONO # 0.4 K/uL (0.0-0.8); MONO % 5.1 % (0.0-10.0); NEUT # 5.3 K/uL (1.8-7.0); NRBC % 0.1 % (0.0-2.0); RBC 4.04 Mil/uL (3.80-5.20); RED CELL DISTRIBUTION WIDTH 16.4 % (11.5-14.5); WHITE BLOOD COUNT 7.1 K/uL (4.8-10.8)
[2017-11-28 07:14] LABS: INR 1.8; PROTHROMBIN TIME 19.6 SECONDS (9.7-12.2)
[2017-11-28 07:33] LABS: LDL CHOLESTEROL 61 mg/dL (0-129)
[2017-11-28 07:39] LABS: ALB/GLOB RATIO 1.3 (1.0-2.1); ALBUMIN 3.9 g/dL (3.5-5.0); ALT/SGPT 14 U/L (9-52); AST/SGOT 26 U/L (14-36); BLOOD UREA NITROGEN 19 mg/dL (7-17); CALCIUM 9.5 mg/dl (8.6-10.4); GFR AFRICAN-AMERICAN > 60; GFR NON-AFRICAN AMERICAN > 60; HDL CHOLESTEROL 75 mg/dL (30-70)
[2017-11-28 08:04] VITALS: TEMP 98.2
--- NOTE | 2017-11-28 08:26 | CP.PCM.CON ---
History of Present Illness - History of Present Illness History of Present Illness: patient has no further dyspnea. blood pressure is better controlled. Review of Systems - Constitutional Constitutional: absent: As Per HPI, Anorexia, Chills, Daytime Sleepiness, Excessive Sweating, Fatigue, Fever, Frequent Falls, Headache, Increased Appetite , Lethargy, Malaise, Night Sweats, Snoring, Sleep Apnea, Weight Gain, Weight Loss, Weakness, Other - EENT Eyes: absent: As Per HPI, Blind Spots, Blurred Vision, Change in Vision, Decreased Night Vision, Diplopia, Discharge, Dry Eye, Exophthalmos, Floaters, Irritation, Itchy Eyes, Loss of Peripheral Vision, Pain, Photophobia, Requires Corrective Lenses, Sees Flashes, Spots in Vision, Tunnel Vision, Other Visual Disturbances, Loss of Vision, Other Ears: absent: As Per HPI, Decreased Hearing, Ear Discharge, Ear Pain, Tinnitus, Abnormal Hearing, Disequilibrium, Dizziness, Other Nose/Mouth/Throat: absent: As Per HPI, Epistaxis, Nasal Congestion, Nasal Discharge, Nasal Obstruction, Nasal Trauma, Nose Pain, Post Nasal Drip, Sinus Pain, Sinus Pressure, Bleeding Gums, Change in Voice, Dental Pain, Dry Mouth, Dysphagia, Halitosis, Hoarsness, Lip Swelling, Mouth Lesions, Mouth Pain, Odynophagia, Sore Throat, Throat Swelling, Tongue Swelling, Facial Pain, Neck Pain, Neck Mass, Other - Cardiovascular Cardiovascular: absent: As Per HPI, Acrocyanosis, Chest Pain, Chest Pain at Rest , Chest Pain with Activity, Claudication, Diaphoresis, Dyspnea, Dyspnea on Exertion, Edema, Irregular Heart Rhythm, Pain Radiating to Arm/Neck/Jaw, Leg Edema, Leg Ulcers, Lightheadedness, Orthopnea, Palpitations, Paroxysmal Nocturnal Dyspnea, Pedal Edema, Radiating Pain, Rapid Heart Rate, Slow Heart Rate, Syncope, Other - Respiratory Respiratory: absent: As Per HPI, Cough, Dyspnea, Hemoptysis, Dyspnea on Exertion , Wheezing, Snoring, Stridor, Pain on Inspiration, Chest Congestion, Excessive Mucous Production, Change in Mucous Color, Pain with Coughing, Other - Gastrointestinal Gastrointestinal: absent: As Per HPI, Abdominal Pain, Belching, Bloating, Change in Bowel Habits, Change in Stool Character, Coffee Ground Emesis, Constipation, Cramping, Diarrhea, Dyspepsia, Dysphagia, Early Satiety, Excessive Flatus, Fecal Incontinence, Heartburn, Hematemesis, Hematochezia, Loose Stools, Melena, Nausea, Odynophagia, Temesmus, Vomiting, Other - Genitourinary Genitourinary: absent: As Per HPI, Change in Urinary Stream, Difficulty Urinating, Dysuria, Flank Pain, Hematuria, Pyuria, Nocturia, Urinary Incontinence, Urinary Frequency, Urinary Hesitance, Urinary Urgency, Voiding Freq/Small Amts, Freq UTI, Hx Renal/Bladder Calculi, Hx /Renal Surgery, Bladder Distension, Other - Musculoskeletal Musculoskeletal: absent: As Per HPI, Abnormal Gait, Arthralgias, Atrophy, Back Pain, Deformity, Joint Swelling, Limited Range of Motion, Loss of Height, Muscle Cramps, Muscle Weakness, Myalgias, Neck Pain, Numbness, Radiating Pain into Limb, Stiffness, Tingling, Other - Integumentary Integumentary: absent: As Per HPI, Acne, Alopecia, Bleeding Lesions, Change in Hair, Change in Nails, Change in Pigmentation, Changing Lesions, Dry Skin, Erythema, Furuncle, Hirsutism, Lesions, New Lesions, Non-Healing Lesions, Photosensitivity, Pruritus, Rash, Skin Pain, Skin Ulcer, Sores, Striae, Swelling , Unusual Bruising, Wounds, Jaundice, Other - Neurological Neurological: absent: As Per HPI, Abnormal Gait, Abnormal Hearing, Abnormal Movements, Abnormal Speech, Behavioral Changes, Burning Sensations, Confusion, Convulsions, Disequilibrium, Dizziness, Numbness, Focal Weakness, Frequent Falls , Headaches, Lack of Coordination, Loss of Vision, Memory Loss, Paresthesias, Radicular Pain, Restless Legs, Sensory Deficit, Syncope, Tingling, Tremor, Vertigo, Weakness, Other Visual Disturbances, Other - Psychiatric Psychiatric: absent: As Per HPI, Abnormal Sleep Pattern, Anhedonia, Anxiety, Auditory Hallucinations, Behavioral Changes, Change in Appetite, Change in Libido, Confusion, Depression, Difficulty Concentrating, Hallucinations, Homicidal Ideation, Hopelessness, Irritability, Memory Loss, Mood Swings, Panic Attacks, Paranoia, Suicidal Ideation, Visual Hallucinations, Tactile Hallucinations, Other - Endocrine Endocrine: absent: As Per HPI, Change in Body Appearance, Change in Libido, Cold Intolorance, Deepening of Voice, Excessive Sweating, Fatigue, Flushing, Heat Intolorance, Increase in Ring/Shoe/Hat Size, Palpitations, Polydipsia, Polyphagia, Polyuria, Other - Hematologic/Lymphatic Hematologic: absent: As Per HPI, Easy Bleeding, Easy Bruising, Lymphadenopathy, Other Past Patient History - Infectious Disease Hx of Infectious Diseases: None - Past Medical History & Family History Past Medical History?: Yes - Past Social History Smoking Status: Never Smoked - CARDIAC Hx Hypercholesterolemia: Yes Hx Hypertension: Yes Hx Peripheral Edema: Yes - PULMONARY Hx Respiratory Disorders: No - NEUROLOGICAL Hx Neurological Disorder: No - HEENT Hx HEENT Problems: No - RENAL Hx Chronic Kidney Disease: No - ENDOCRINE/METABOLIC Hx Endocrine Disorders: No - HEMATOLOGICAL/ONCOLOGICAL Hx Blood Disorders: No - INTEGUMENTARY Hx Dermatological Problems: No - MUSCULOSKELETAL/RHEUMATOLOGICAL Hx Arthritis: Yes Hx Fractures: Yes (RIGHT ANKLE) - GASTROINTESTINAL Hx Gastritis: Yes - GENITOURINARY/GYNECOLOGICAL Hx Genitourinary Disorders: No - PSYCHIATRIC Hx Substance Use: No - SURGICAL HISTORY Other/Comment: venous filter in R leg - ANESTHESIA Hx Anesthesia: Yes Hx Anesthesia Reactions: No Hx Malignant Hyperthermia: No Meds Allergies/Adverse Reactions: Allergies Allergy/AdvReac Type Severity Reaction Status Date / Time No Known Allergies Allergy Verified 11/26/17 16:44 - Medications Medications: Current Medications Diltiazem HCl (Cardizem Cd) 180 mg PO DAILY [facility] Last Admin: 11/27/17 09:14 Dose: 180 mg Losartan Potassium (Cozaar) 25 mg PO DAILY [facility] Last Admin: 11/27/17 14:52 Dose: 25 mg Metoprolol Tartrate (Lopressor) 25 mg PO BID [facility] Last Admin: 11/27/17 21:41 Dose: 25 mg Pantoprazole Sodium (Protonix Ec Tab) 40 mg PO DAILY [facility] Last Admin: 11/27/17 09:14 Dose: 40 mg Rosuvastatin Calcium (Crestor) 5 mg PO DIN [facility] Rosuvastatin Calcium (Crestor) 2.5 mg PO HS [facility] Last Admin: 11/27/17 21:41 Dose: 2.5 mg Physical Exam - Constitutional Appears: Non-toxic - Head Exam Head Exam: NORMAL INSPECTION - Eye Exam Eye Exam: Normal appearance - ENT Exam ENT Exam: Mucous Membranes Moist - Neck Exam Neck exam: Positive for: Normal Inspection - Respiratory Exam Respiratory Exam: NORMAL BREATHING PATTERN - Cardiovascular Exam Cardiovascular Exam: REGULAR RHYTHM - GI/Abdominal Exam GI & Abdominal Exam: Normal Bowel Sounds - Rectal Exam Rectal Exam: Deferred - Extremities Exam Extremities exam: Negative for: pedal edema - Back Exam Back exam: NORMAL INSPECTION - Neurological Exam Neurological exam: Alert, Oriented x3 - Psychiatric Exam Psychiatric exam: Normal Affect - Skin Skin Exam: Normal Color Results - Vital Signs Recent Vital Signs: Last Vital Signs Temp 98.2 F 11/28/17 07:00 Pulse 57 L 11/28/17 07:00 Resp 20 11/28/17 07:00 BP 122/68 11/28/17 07:00 Pulse Ox 98 11/28/17 07:00 - Labs Result Diagrams: 11/28/17 06:49 11/28/17 06:49 Labs: Laboratory Results - last 24 hr 11/27/17 11/28/17 11/28/17 09:31 06:49 06:49 WBC 7.1 RBC 4.04 Hgb 12.9 Hct 37.7 MCV 93.3 MCH 31.9 H MCHC 34.2 RDW 16.4 H Plt Count 203 MPV 8.6 Neut % (Auto) 75.0 Lymph % (Auto) 19.6 L [place] % (Auto) 5.1 Eos % (Auto) 0.1 Baso % (Auto) 0.2 Neut # (Auto) 5.3 Lymph # (Auto) 1.4 [place] # (Auto) 0.4 Eos # (Auto) 0.0 Baso # (Auto) 0.0 PT 19.6 H D INR 1.8 D Sodium Potassium Chloride Carbon Dioxide Anion Gap BUN Creatinine Est GFR ( Amer) Est GFR (Non-Af Amer) Random Glucose Calcium Total Bilirubin AST ALT Alkaline Phosphatase Troponin I 0.0120 Total Protein Albumin Globulin Albumin/Globulin Ratio Triglycerides Cholesterol LDL Cholesterol Direct HDL Cholesterol TSH 3rd Generation 11/28/17 06:49 WBC RBC Hgb Hct MCV MCH MCHC RDW Plt Count MPV Neut % (Auto) Lymph % (Auto) [place] % (Auto) Eos % (Auto) Baso % (Auto) Neut # (Auto) Lymph # (Auto) [place] # (Auto) Eos # (Auto) Baso # (Auto) PT INR Sodium 142 Potassium 4.3 Chloride 104 Carbon Dioxide 28 Anion Gap 15 BUN 19 H Creatinine 0.7 Est GFR ( Amer) > 60 Est GFR (Non-Af Amer) > 60 Random Glucose 109 H Calcium 9.5 Total Bilirubin 0.8 AST 26 ALT 14 Alkaline Phosphatase 70 Troponin I Total Protein 6.8 Albumin 3.9 Globulin 2.9 Albumin/Globulin Ratio 1.3 Triglycerides 42 D Cholesterol 168 LDL Cholesterol Direct 61 HDL Cholesterol 75 H TSH 3rd Generation 1.48 - EKG Data EKG Interpreted by: Myself Assessment & Plan (1) SOB (shortness of breath) Assessment and Plan: improved. normal left ventricualr function by echocardiogram. patient is stable for discharge Status: Acute (2) Hypertension Assessment and Plan: blood pressure controlled. Status: Acute
[2017-11-28 08:52] VITALS: PULSE 53
[2017-11-28] MEDS: diltiaZEM 180 mg/24 Hours CD Cap PO SCH (09:59)
[2017-11-28 10:00] VITALS: BP 153/76
[2017-11-28] MEDS: Pantoprazole 40 mg EC Tab PO SCH (10:00)
--- NOTE | 2017-11-28 11:10 | CP.PCM.PN ---
Subjective - Date & Time of Evaluation Date of Evaluation: 11/28/17 Time of Evaluation: 11:10 - Subjective Subjective: Discharge summary dictated #[id number] Objective - Vital Signs/Intake and Output Vital Signs (last 24 hours): Temp Pulse Resp BP Pulse Ox 98.2 F 53 L 20 153/76 H 98 11/28/17 07:00 11/28/17 07:25 11/28/17 07:00 11/28/17 09:59 11/28/17 08:00 - Medications Medications: Current Medications Diltiazem HCl (Cardizem Cd) 180 mg PO DAILY [facility] Last Admin: 11/28/17 09:59 Dose: 180 mg Losartan Potassium (Cozaar) 25 mg PO DAILY [facility] Last Admin: 11/28/17 10:03 Dose: Not Given Metoprolol Tartrate (Lopressor) 25 mg PO BID [facility] Last Admin: 11/28/17 09:59 Dose: 25 mg Pantoprazole Sodium (Protonix Ec Tab) 40 mg PO DAILY [facility] Last Admin: 11/28/17 10:00 Dose: 40 mg Rosuvastatin Calcium (Crestor) 5 mg PO DIN [facility] Rosuvastatin Calcium (Crestor) 2.5 mg PO HS [facility] Last Admin: 11/27/17 21:41 Dose: 2.5 mg - Labs Labs: 11/28/17 06:49 11/28/17 06:49 PT 19.6 SECONDS (9.7-12.2) H D 11/28/17 06:49 INR 1.8 D 11/28/17 06:49 APTT 43 SECONDS (21-34) H 11/27/17 07:29
[2017-11-28 15:12] LABS: URINE BILIRUBIN NEGATIVE (NEGATIVE); URINE BLOOD NEGATIVE (NEGATIVE); URINE CLARITY Clear (Clear); URINE COLOR Yellow (YELLOW); URINE GLUCOSE (UA) NORMAL (Normal); URINE LEUKOCYTE ESTERASE NEG Leu/uL (Negative); URINE PROTEIN NEGATIVE (NEGATIVE); URINE UROBILINOGEN NORMAL mg/dL (0.2-1.0)
--- NOTE | 2017-11-29 12:13 | DS ---
DISCHARGE DIAGNOSES: Dyspnea on exertion, resolved; acute coronary syndrome, ruled out; hypertension, blood pressure is controlled; history of deep vein thrombosis; history of hyperlipidemia. HISTORY OF PRESENT ILLNESS: Ms. Yoon is a 77-year-old female with past medical history of hypertension, hyperlipidemia, right leg DVT, status post IVC filter placement, on long-term IV anticoagulation who has been following up with Dr. Kit Rizzo as primary care physician, came into the ED with sudden onset of shortness of breath while walking two blocks after visiting the doctor's office. The patient came into the ED for further evaluation. In the ED, the patient was found to be having normal troponin and normal EKG, and the patient has been admitted for further evaluation of CAD. Today, the patient is feeling much better. Denies any headache, dizziness. Denies any chest pain, shortness of breath, or wheezing. Denies any nausea, vomiting, abdominal pain, diarrhea, or constipation. Denies any urinary complaints. Denies any leg pains or leg cramps. Denies any other neurologic symptoms. All other systems reviewed and was found to be negative. PHYSICAL EXAMINATION: GENERAL: Elderly female, lying in bed in no acute distress. VITAL SIGNS: Blood pressure 122/68, pulse 67, respirations 20, temperature 98.2 degrees Fahrenheit, O2 sat is 98% on room air. HEENT: Pupils are equal, round, and reacting to light and accommodation. Extraocular muscles are intact. No icterus. No pallor. No oral thrush. No pharyngeal congestion. NECK: Supple. No JVD. No thyromegaly. CHEST: Moving equally bilaterally on respiration. LUNGS: Bilaterally vesicular breath sounds. No wheezing. No rhonchi. CVS: S1 and S2 present, regular. ABDOMEN: Soft, nontender. Bowel sounds are present. No guarding. No rigidity. No rebound tenderness noted. CANVAS BASTER: Alert, awake, oriented x3. No focal deficits noted. EXTREMITIES: No edema. Palpable peripheral pulses.. LABORATORY DATA: Labs done from this morning, WBC 7.1, hemoglobin 12.9, hematocrit 37.7, platelet 203. Sodium 142, potassium 4.3, chloride 104, bicarbonate 28, BUN 19, creatinine 0.7, glucose 109, calcium 9.5. Total bilirubin 0.8, AST 26, ALT 14, alkaline phosphatase 70. Cardiac enzymes x3 negative. HDL 75, LDL 51, cholesterol 168, triglycerides 42. TSH 1.48. UA negative. EKG, normal sinus rhythm without any acute ST-T changes. Echocardiogram consistent with mild mitral regurgitation, mild TR, mild pulmonary hypertension. Left ventricle, normal size and thickness. Function is normal. Ejection fraction is within normal range. Normal LV segmental wall motion. Chest x-ray negative for any infiltrate. HOSPITAL COURSE: The patient was admitted to telemetry to rule out acute coronary syndrome. The patient was evaluated by Cardiology. All the workup is negative. For acute coronary syndrome, the patient had cardiac catheterization in [address] Olson recommended stress test as an outpatient, to be done by Dr. Kit Rizzo. Her blood pressure is running high. Losartan was added, 25 mg which her blood pressure has improved. Advised the patient to continue with her home medications along with losartan and advised to follow up with Dr. Kit Rizzo once he returns from vacation. CONDITION UPON DISCHARGE: The patient is awake, alert, oriented x3 and hemodynamically stable for discharge. DISCHARGE INSTRUCTIONS: Follow up with PMD, Dr. Kit Rizzo. DIET: Heart-healthy, low-cholesterol diet. ACTIVITY: As tolerated. DISCHARGE MEDICATIONS: Losartan 25 mg p.o. daily, metoprolol 25 mg p.o. b.i.d., Cardizem 180 mg p.o. daily, Lipitor 10 mg at night, Coumadin 3 mg at night, omeprazole 20 mg daily. Martín Ma MD
--- NOTE | 2017-11-30 17:24 | CARD ---
APPROVED REPORT EKG Measurement Heart [id number] CA [id number] [id number] <Conclusion> Normal sinus rhythm Normal ECG
== END 2017-11-28 12:56 | disposition home or self-care (01) ==
LOC: C.ER 16:14 → C.9E 18:14 → C.6T 21:57
PROVIDERS: ADMIT Internal Medicine; ATTEND Internal Medicine
DX: I10 Essential (primary) hypertension (principal); E78.5 Hyperlipidemia, unspecified; I25.10 Atherosclerotic heart disease of native coronary artery without angina pectoris; R07.89 Other chest pain
CPT/HCPCS: 36415; 71045; 80053; 80061; 81001; 82550; 82553; 83880; 84443; 84484; 85025; 85610; 85730; 93005; 93306; 99285; G0378

== ENCOUNTER 2018-07-11 10:39 | Inpatient (IN) | payer MEDICARE ==
--- NOTE | 2018-07-11 11:24 | C.PDOC ---
History Of Present Illness 77 year old female presents to the emergency department with complaints of right knee and leg pain status-post banging her right knee against a pallet in a supermarket 10 days ago. Patient states that since then, the pain has been wo rsening. Patient reports a history of DVT in her right leg, for which she is currently taking Coumadin. Patient states that the area has become more swollen and a large bruise has developed. Patient denies fever, chest pain, and shortness of breath. Time Seen by Provider: 07/11/18 10:50 Chief Complaint (Nursing): Lower Extremity Problem/Injury History Per: Patient History/Exam Limitations: no limitations Onset/Duration Of Symptoms: Days (10) Current Symptoms Are (Timing): Still Present - Knee Description Of Injury: Struck Against Object Past Medical History Reviewed: Historical Data, Nursing Documentation, Vital Signs Vital Signs: Last Vital Signs Temp 97.2 F L 07/11/18 10:44 Pulse 71 07/11/18 10:44 Resp 20 07/11/18 10:44 BP 166/76 H 07/11/18 10:44 Pulse Ox 99 07/11/18 10:44 - Medical History PMH: Arthritis (b/l knees), Colonic Polyps, Deep Vein Thrombosis, Fractures (RIGHT ANKLE), Gastritis, HTN, Hypercholesterolemia, Peripheral Edema Denies: Chronic Kidney Disease Surgical History: Endoscopy Family History: States: [place] (father ), CAD, Hypertension - Social History Hx Tobacco Use: No Hx Alcohol Use: No Hx Substance Use: No - Immunization History Hx Tetanus Toxoid Vaccination: No Hx Influenza Vaccination: Yes (2018) Hx Pneumococcal Vaccination: Yes (2017) Review Of Systems Constitutional: Negative for: Fever, Chills Cardiovascular: Negative for: Chest Pain Respiratory: Negative for: Shortness of Breath Musculoskeletal: Positive for: Leg Pain (right leg and right knee) Physical Exam - Physical Exam Appears: Non-toxic, In Acute Distress (moderate pain) Skin: Warm, Dry, Ecchymosis (large area of ecchymosis over the anterior hale), Other (4-5cm in diameter area of erythema over the right knee) Head: Atraumatic, Normacephalic Eye(s): bilateral: Normal Inspection Neck: Normal, Supple Chest: Symmetrical, No Tenderness Cardiovascular: Rhythm Regular, No Murmur Respiratory: Normal Breath Sounds, No Rales, No Rhonchi, No Wheezing Extremity: Tenderness (to the lower leg), Swelling (moderate swelling to the right knee, and to the lower leg), Other Pulses: Left Dorsalis Pedis: Normal, Right Dorsalis Pedis: Normal Neurological/Psych: Oriented x3 ED Course And Treatment - Laboratory Results Result Diagrams: 07/11/18 11:24 07/11/18 11:24 O2 Sat by Pulse Oximetry: 99 (RA) Pulse Ox Interpretation: Normal - Other Rad XR Right Knee X-Ray: Viewed By Me, Read By Radiologist Interpretation: IMPRESSION: Tricompartmental osteoarthritis, 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 No acute fracture. - CT Scan/US CT RIGHT LE Other Rad Studies (CT/US): Read By Radiologist, Radiology Report Reviewed CT/US Interpretation: Accession No. : [id number]. Patient Name / ID : BRENNAN LAW / [id number]. Exam Date : 07/11/2018 12:33:49 ( Approved ). Study Comment : Sex / Age : F / 77Y. Creator : Francy Matos MD. Dictator : Francy Matos MD. Lace Weaver : Disposition Clerk : Francy Matos MD. Approver2 : Report Date : 07/11/2018 15:01:59. My Comment : . Date of service: 07/11/2018. Indication: right leg swelling, pain, r.o hematoma. Noncontrast CT of the right lower extremity. Comparison: Right knee radiographs performed 07/11/18. Technique: Noncontrast axial images of the right lower extremity. Sagittal and coronal reformatted images were generated and reviewed. This CT exam was performed using 1 or more of the falling dose reduction techniques: Automated exposure control, adjustment of the MAA and/or kV according to patient size, and/or use of iterative reconstruction technique. Total exam DLP: 853.54. Findings: Diffuse soft tissue swelling. More focal edema and/or cellulitis involving the soft tissues at the infrapatellar region anterior to the proximal tibia. No acute fracture. No dislocation. Vascular calcifications. Impression: Diffuse soft tissue swelling. More focal edema and/or cellulitis involving the soft tissues at the infrapatellar region anterior to the proximal tibia. No acute fracture. Progress Note: Plan: CT Right Lower Extremity. Chemistry. Bloodwork. XR Right Knee Disposition - Disposition Forms: [employer] (Danish) - Scribe Statement The provider has reviewed the documentation as recorded by the Scribe (Ronaldo Cain) Provider Attestation: All medical record entries made by the Scribe were at my direction and personally dictated by me. I have reviewed the chart and agree that the record accurately reflects my personal performance of the history, physical exam, medical decision making, and the department course for this patient. I have also personally directed, reviewed, and agree with the discharge instructions and disposition.
[2018-07-11 11:29] LABS: HEMOGLOBIN 12.2 g/dL (11.0-16.0); RBC 3.94 Mil/uL (3.80-5.20); WHITE BLOOD COUNT 6.9 K/uL (4.8-10.8)
[2018-07-11 11:30] LABS: BASO % 0.5 % (0.0-2.0); EOS # 0.1 K/uL (0.0-0.7); EOS % 0.9 % (0.0-4.0); LYMPH # 1.2 K/uL (1.0-4.3); LYMPH % 17.1 % (20.0-40.0); MEAN CELL VOLUME 93.5 fL (81.0-99.0); MEAN CORPUSCULAR HEMOGLOBIN 30.9 pg (27.0-31.0); MEAN PLATELET VOLUME 8.5 fL (7.2-11.7); MONO # 0.4 K/uL (0.0-0.8); MONO % 6.1 % (0.0-10.0); NEUT # 5.2 K/uL (1.8-7.0); NEUT % 75.4 % (50.0-75.0); RED CELL DISTRIBUTION WIDTH 16.5 % (11.5-14.5)
[2018-07-11 11:41] LABS: ALB/GLOB RATIO 1.8 (1.0-2.1); ALBUMIN 4.7 g/dL (3.5-5.0); ALT/SGPT 21 U/L (9-52); AST/SGOT 31 U/L (14-36); BLOOD UREA NITROGEN 22 mg/dL (7-17); CALCIUM 9.4 mg/dl (8.6-10.4); GFR NON-AFRICAN AMERICAN > 60; PROTHROMBIN TIME 21.7 SECONDS (9.7-12.2)
--- NOTE | 2018-07-11 12:59 | RAD ---
Date of service: 07/11/2018 PROCEDURE: Right Knee Radiographs. HISTORY: RIGHT KNEE PAIN AFTER INJURY COMPARISON: None. FINDINGS: BONES: Normal. No fracture. JOINTS: Tricompartmental osteoarthritis most severe in the lateral compartment. No articular erosions. JOINT EFFUSION: None. OTHER FINDINGS: None. 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 No acute fracture.
--- NOTE | 2018-07-11 15:05 | CT ---
Date of service: 07/11/2018 Indication: right leg swelling, pain, r.o hematoma Noncontrast CT of the right lower extremity Comparison: Right knee radiographs performed 07/11/18 Technique: Noncontrast axial images of the right lower extremity. Sagittal and coronal reformatted images were generated and reviewed. This CT exam was performed using 1 or more of the falling dose reduction techniques: Automated exposure control, adjustment of the MAA and/or kV according to patient size, and/or use of iterative reconstruction technique. Total exam DLP: 853.54 Findings: Diffuse soft tissue swelling. More focal edema and/or cellulitis involving the soft tissues at the infrapatellar region anterior to the proximal tibia. No acute fracture. No dislocation. Vascular calcifications. Impression: Diffuse soft tissue swelling. More focal edema and/or cellulitis involving the soft tissues at the infrapatellar region anterior to the proximal tibia. No acute fracture.
[2018-07-11] MEDS ORDERED: Vancomycin 1 GM 1 GM/250 ML BAG IV STA (15:07)
[2018-07-11] MEDS ORDERED: Vancomycin 1 GM 1 GM/250 ML BAG IVPB ONE (15:27)
[2018-07-11] MEDS ORDERED: Home Med 1 UNIT (Atorvastatin [Lipitor] 10 MG) PO SCH (20:30)
[2018-07-11] MEDS: Ceftaroline 600 MG in Sodium Chloride 0.9% 100 ML IVPB SCH (22:17)
[2018-07-12 00:04] VITALS: RESP 20
--- NOTE | 2018-07-12 02:06 | CP.PCM.CON ---
History of Present Illness - History of Present Illness History of Present Illness: General Surgery Consult Re: RLE cellulitis HPI: 77F presented to ED complaining of R knee pain after banging her right knee against a pallet in a supermarket 10 days ago. Since the injury, the pain has worsened and the area has become more swollen and a large bruise has developed. She has been unable to wear her support hose due too the pain so her RLE is more edematous due to her DVT which she has been taking warfarin for. Denies fever, chills, chest pain, SOB, abd pain. PMH: HTN, hypercholesterolemia, Hx RLE DVT, arthritis, gastritis PSH: IVC filter SH: No tobacco, EtOH, or drug use FH: Noncontributory All: NKDA Meds:See MAR, on Warfarin at home. Review of Systems - Review of Systems All systems: reviewed and no additional remarkable complaints except (as per HPI) Past Patient History - Infectious Disease Hx of Infectious Diseases: None - Past Medical History & Family History Past Medical History?: Yes - Past Social History Smoking Status: Never Smoked - CARDIAC Hx Hypercholesterolemia: Yes Hx Hypertension: Yes Hx Peripheral Edema: Yes - PULMONARY Hx Respiratory Disorders: No - NEUROLOGICAL Hx Neurological Disorder: No - HEENT Hx HEENT Problems: No - RENAL Hx Chronic Kidney Disease: No - ENDOCRINE/METABOLIC Hx Endocrine Disorders: No - HEMATOLOGICAL/ONCOLOGICAL Hx Blood Disorders: No - INTEGUMENTARY Hx Dermatological Problems: No - MUSCULOSKELETAL/RHEUMATOLOGICAL Hx Falls: No - GASTROINTESTINAL Hx Gastritis: Yes - GENITOURINARY/GYNECOLOGICAL Hx Genitourinary Disorders: No - PSYCHIATRIC Hx Substance Use: No - SURGICAL HISTORY Hx Hysterectomy: Yes Other/Comment: venous filter in R leg - ANESTHESIA Hx Anesthesia: Yes Hx Anesthesia Reactions: No Hx Malignant Hyperthermia: No Meds Allergies/Adverse Reactions: Allergies Allergy/AdvReac Type Severity Reaction Status Date / Time No Known Allergies Allergy Verified 07/11/18 10:48 - Medications Medications: Current Medications Acetaminophen (Tylenol 325mg Tab) 650 mg PO Q6 PRN PRN Reason: Pain Diltiazem HCl (Cardizem Cd) 180 mg PO DAILY [facility] Ceftaroline Fosamil 600 mg/ (Sodium Chloride) 100 mls @ 100 mls/hr IVPB Q12H [facility]; Protocol Last Admin: 07/11/18 22:17 Dose: 100 mls/hr Metoprolol Tartrate (Lopressor) 25 mg PO BID [facility] Last Admin: 07/11/18 21:23 Dose: 25 mg Pantoprazole Sodium (Protonix Ec Tab) 40 mg PO DAILY [facility] Rosuvastatin Calcium (Crestor) 5 mg PO HS [facility] Last Admin: 07/11/18 21:23 Dose: 5 mg Physical Exam - Constitutional Appears: Non-toxic, No Acute Distress - Head Exam Head Exam: ATRAUMATIC, NORMOCEPHALIC - Eye Exam Eye Exam: EOMI. absent: Scleral icterus - ENT Exam ENT Exam: Mucous Membranes Moist - Neck Exam Neck exam: Negative for: Lymphadenopathy, Tenderness - Respiratory Exam Respiratory Exam: NORMAL BREATHING PATTERN. absent: Respiratory Distress - Cardiovascular Exam Cardiovascular Exam: +S1. absent: Tachycardia, +S2 - GI/Abdominal Exam GI & Abdominal Exam: Soft. absent: Distended, Tenderness - Rectal Exam Rectal Exam: Deferred - Extremities Exam Extremities exam: Positive for: joint swelling (knees), normal capillary refill, pedal edema. Negative for: calf tenderness Additional comments: Cellulitic Area of mild TTP and outlined erythema below R knee - Back Exam Back exam: absent: CVA tenderness (L), CVA tenderness (R) - Neurological Exam Neurological exam: Alert, Oriented x3 - Skin Skin Exam: Dry, Warm Results - Vital Signs Recent Vital Signs: Last Vital Signs Temp 98.0 F 07/12/18 00:00 Pulse 57 L 07/12/18 00:00 Resp 20 07/12/18 00:00 BP 134/70 07/12/18 00:00 Pulse Ox 96 07/12/18 00:00 - Labs Result Diagrams: 07/11/18 11:24 07/11/18 11:24 Labs: Laboratory Results - last 24 hr 07/11/18 07/11/18 07/11/18 11:24 11:24 11:24 WBC 6.9 RBC 3.94 Hgb 12.2 Hct 36.8 MCV 93.5 MCH 30.9 MCHC 33.0 RDW 16.5 H Plt Count 219 MPV 8.5 Neut % (Auto) 75.4 H Lymph % (Auto) 17.1 L [place] % (Auto) 6.1 Eos % (Auto) 0.9 Baso % (Auto) 0.5 Neut # (Auto) 5.2 Lymph # (Auto) 1.2 [place] # (Auto) 0.4 Eos # (Auto) 0.1 Baso # (Auto) 0.0 PT 21.7 H INR 2.0 APTT 35 H Sodium 139 Potassium 4.4 Chloride 101 Carbon Dioxide 28 Anion Gap 14 BUN 22 H Creatinine 0.7 Est GFR ( Amer) > 60 Est GFR (Non-Af Amer) > 60 Random Glucose 105 Calcium 9.4 Total Bilirubin 0.8 AST 31 ALT 21 Alkaline Phosphatase 82 Total Creatine Kinase 37 Total Protein 7.3 Albumin 4.7 Globulin 2.6 Albumin/Globulin Ratio 1.8 - Imaging and Cardiology CT scan - lower extremitiy Status: Image reviewed by me, Report reviewed by me US - abdomen Status: Image reviewed by me Knee x-ray Status: Image reviewed by me, Report reviewed by me Assessment & Plan - Assessment and Plan (Free Text) Assessment: 77F with RLE cellulitis Plan: Continue Abx. Continue AC for chronic DVT. Monitor for improvement. Will D/W Dr. Javier Butler PGY4
[2018-07-12 07:22] LABS: INR 1.9; PROTHROMBIN TIME 20.3 SECONDS (9.7-12.2)
[2018-07-12 07:23] LABS: BASO % 0.7 % (0.0-2.0); EOS # 0.1 K/uL (0.0-0.7); EOS % 1.8 % (0.0-4.0); HEMOGLOBIN 11.8 g/dL (11.0-16.0); LYMPH # 1.3 K/uL (1.0-4.3); LYMPH % 23.4 % (20.0-40.0); MEAN CELL VOLUME 92.2 fL (81.0-99.0); MEAN CORPUSCULAR HEMOGLOBIN 30.9 pg (27.0-31.0); MEAN CORPUSCULAR HGB CONC 33.5 g/dL (33.0-37.0); MEAN PLATELET VOLUME 8.6 fL (7.2-11.7); MONO # 0.4 K/uL (0.0-0.8); MONO % 6.9 % (0.0-10.0); NEUT # 3.6 K/uL (1.8-7.0); NEUT % 67.2 % (50.0-75.0); NRBC % 0.1 % (0.0-2.0); RBC 3.81 Mil/uL (3.80-5.20); RED CELL DISTRIBUTION WIDTH 16.2 % (11.5-14.5); WHITE BLOOD COUNT 5.4 K/uL (4.8-10.8)
[2018-07-12 07:43] LABS: ALB/GLOB RATIO 1.6 (1.0-2.1); ALBUMIN 4.1 g/dL (3.5-5.0); ALT/SGPT 21 U/L (9-52); AST/SGOT 25 U/L (14-36); BLOOD UREA NITROGEN 15 mg/dL (7-17); CALCIUM 9.3 mg/dl (8.6-10.4); GFR NON-AFRICAN AMERICAN > 60
[2018-07-12] MEDS: diltiaZEM 180 mg/24 Hours CD Cap PO SCH (09:25)
[2018-07-12] MEDS: Pantoprazole 40 mg EC Tab PO SCH (09:25)
[2018-07-12] MEDS: Ceftaroline 600 MG in Sodium Chloride 0.9% 100 ML IVPB SCH ×2 (09:25→21:15)
--- NOTE | 2018-07-12 09:29 | VASCLAB ---
Date of service: 07/11/2018 PROCEDURE: Right Lower Extremity Venous Duplex Exam. HISTORY: RIGHT LEG PAIN AND SWELLING, H/O DVT PRIORS: None. TECHNIQUE: Right common femoral, femoral, popliteal and posterior tibial, peroneal and great saphenous veins were evaluated. Flow was assessed with color Doppler, compressibility, assessment of phasic flow and augmentation response. Report prepared by Franki Edmondson, AMBAR, RVT FINDINGS: RIGHT: 1. Common Femoral Vein: 1.1. Compressibility - Partial: Thrombus - Chronic: Flow - Reduced : Augmentation -Reduced: Reflux - None. 2. Femoral Vein: 2.1. Compressibility - Partial: Thrombus - Chronic: Flow - Reduced : Augmentation -Reduced: Reflux - None. 3. Popliteal Vein: 3.1. Compressibility - Partial: Thrombus - Chronic: Flow - Reduced : Augmentation -Reduced: Reflux - None. 4. Posterior Tibial Vein: 4.1. Compressibility - Partial: Thrombus - Chronic: Flow - Absent : Augmentation - None: Reflux - None. 5. Peroneal Vein: 5.1. Compressibility - Fully compressible: Thrombus - None: Flow - Phasic: Augmentation -Normal: Reflux - None. 6. Great Saphenous Vein: 6.1. Compressibility - Fully compressible: Thrombus -None: Flow - Phasic: Augmentation - Normal: Reflux - None. OTHER FINDINGS: Dr. Spencer notified about the findings. 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 Normal venous flow noted in the left common femoral vein.
--- NOTE | 2018-07-12 18:49 | CP.PCM.CON ---
History of Present Illness - History of Present Illness History of Present Illness: INFECTIOUS DISEASE CONSULTATION BONI BARILLAS MD, FACP 07/12/2018 CHART REVIEWED PT EXAMINED CASE DISCUSSED WITH PT AND STAFF THIS PATIENT IS A PLEASANT 77 YR OLD WHITE FEMALE ADMITTED VIA ER/ED WITH RIGHT KNEE REDNESS/RIGHT LEG ECHHYMOSIS ALL POST TRAUMA OVER 10 DAYS AGO, OF NOTE, ALL THIS WAS POST TRAUMA WHILE ON COUMADIN. AN INFECTIOUS DISEASE CONSULTATION WAS REQUESTED BECAUSE OF POSSIBLE CELLULITIS OF HER RIGHT KNEE, NOT IMPROVING. PMHX: DVT ON COUMADIN IVC FILTER HTN DYSLIPIDEMIA S/P HYSTERECTOMY ARTHRITIS COLONIC POLYPS S/P FX RIGHT ANKLE GASTRITIS ETC, ETC DENIES ALLERGIES TO MED NO TOBACCO/ETOH USE ABUSE ADMITTED TO DENIES SIGNIFICANT MEDICAL ISSUES OTHER THAN FATHER: RI/CAD/HTN ROS: SEE H/P AND HOSPITAL PROTOCOL VSS: PER COMPUTER NOTES AWAKE, ALERT LIMITED AMBULATION SUPPLE NECK LUNGS DECREASED BREATH SOUNDS COR RR ABD SOFT RIGHT LEG: KNEE IS REDDENED LOCALLY BUT NOT OBVIOUSLY SIGNIFICANT DIFFUSE SWELLING AND HEMATOMA AROUND HER LOWER RIGHT LEG NEURO NO FOCAL FINDINGS POSSIBLE CELLULITIS RIGHT KNEE VS HEMATOMA RESOLUTION R/O LOCAL FRACTURE CONSIDER ORTHOPEDIC CONSULTATION ORDERS GIVEN FOR TEFLARO 600 Q 12 HOURS. Past Patient History - Infectious Disease Hx of Infectious Diseases: None - Past Medical History & Family History Past Medical History?: Yes - Past Social History Smoking Status: Never Smoked - CARDIAC Hx Hypercholesterolemia: Yes Hx Hypertension: Yes Hx Peripheral Edema: Yes - PULMONARY Hx Respiratory Disorders: No - NEUROLOGICAL Hx Neurological Disorder: No - HEENT Hx HEENT Problems: No - RENAL Hx Chronic Kidney Disease: No - ENDOCRINE/METABOLIC Hx Endocrine Disorders: No - HEMATOLOGICAL/ONCOLOGICAL Hx Blood Disorders: No - INTEGUMENTARY Hx Dermatological Problems: No - MUSCULOSKELETAL/RHEUMATOLOGICAL Hx Falls: No - GASTROINTESTINAL Hx Gastritis: Yes - GENITOURINARY/GYNECOLOGICAL Hx Genitourinary Disorders: No - PSYCHIATRIC Hx Substance Use: No - SURGICAL HISTORY Hx Hysterectomy: Yes Other/Comment: venous filter in R leg - ANESTHESIA Hx Anesthesia: Yes Hx Anesthesia Reactions: No Hx Malignant Hyperthermia: No Meds Allergies/Adverse Reactions: Allergies Allergy/AdvReac Type Severity Reaction Status Date / Time No Known Allergies Allergy Verified 07/11/18 10:48 - Medications Medications: Current Medications Acetaminophen (Tylenol 325mg Tab) 650 mg PO Q6 PRN PRN Reason: Pain Diltiazem HCl (Cardizem Cd) 180 mg PO DAILY [facility] Last Admin: 07/12/18 09:25 Dose: 180 mg Ceftaroline Fosamil 600 mg/ (Sodium Chloride) 100 mls @ 100 mls/hr IVPB Q12H [facility]; Protocol Last Admin: 07/12/18 09:25 Dose: 100 mls/hr Metoprolol Tartrate (Lopressor) 25 mg PO BID [facility] Last Admin: 07/12/18 17:51 Dose: 25 mg Pantoprazole Sodium (Protonix Ec Tab) 40 mg PO DAILY [facility] Last Admin: 07/12/18 09:25 Dose: 40 mg Rosuvastatin Calcium (Crestor) 5 mg PO HS [facility] Last Admin: 07/11/18 21:23 Dose: 5 mg Results - Vital Signs Recent Vital Signs: Last Vital Signs Temp 98.1 F 07/12/18 15:30 Pulse 66 07/12/18 15:30 Resp 20 07/12/18 15:30 BP 137/75 07/12/18 17:51 Pulse Ox 97 07/12/18 15:30 - Labs Result Diagrams: 07/12/18 07:10 07/12/18 07:10 Labs: Laboratory Results - last 24 hr 07/12/18 07/12/18 07/12/18 07:10 07:10 07:10 WBC 5.4 RBC 3.81 Hgb 11.8 Hct 35.2 MCV 92.2 MCH 30.9 MCHC 33.5 RDW 16.2 H Plt Count 209 MPV 8.6 Neut % (Auto) 67.2 Lymph % (Auto) 23.4 [place] % (Auto) 6.9 Eos % (Auto) 1.8 Baso % (Auto) 0.7 Neut # (Auto) 3.6 Lymph # (Auto) 1.3 [place] # (Auto) 0.4 Eos # (Auto) 0.1 Baso # (Auto) 0.0 ESR 17 PT 20.3 H INR 1.9 Sodium 138 Potassium 3.9 Chloride 102 Carbon Dioxide 27 Anion Gap 13 BUN 15 Creatinine 0.6 L Est GFR ( Amer) > 60 Est GFR (Non-Af Amer) > 60 Random Glucose 90 Calcium 9.3 Total Bilirubin 0.9 AST 25 ALT 21 Alkaline Phosphatase 88 Total Protein 6.7 Albumin 4.1 Globulin 2.6 Albumin/Globulin Ratio 1.6
--- NOTE | 2018-07-12 21:13 | HP ---
HISTORY OF PRESENT ILLNESS: This is a 77-year-old female who was brought in with a history of pain in the right leg, swelling and was found to have a cellulitis. Also has a history of DVT in the right leg for which she has been on the Coumadin. About 10 days ago, she states she hurt her knee and fell. Subsequently, she got increasing edema and for the last three to four days, she has noted swelling and redness over the right knee, came to the emergency room where she was found to have cellulitis. CT of the leg was done and diffuse soft tissue swelling was noted and cellulitis. PAST MEDICAL HISTORY: History of DVT, had a filter placed in 2006. She has been seen by Dr. Herrera in the past. History of hysterectomy, recurrent admission for chest pains. FAMILY HISTORY: Father of [place] at 67, mother had congestive heart failure. PERSONAL HISTORY: Does not smoke, does not drink. HOME MEDICATIONS: Celebrex, Coumadin 2 mg alternate with 1 mg and her INR is kept in around neighborhood of 2, occasional Tylenol and Cardizem and she takes metoprolol tartrate 25 mg b.i.d., Pletal 50 mg. ALLERGIES: DENIED. REVIEW OF SYSTEMS: CONSTITUTIONAL: No fever, no chills. Generalized weakness is noted. EYES: She wears glasses. EARS: She is partially deaf. NECK: No swollen glands. RESPIRATORY: Negative for cough or hemoptysis. CARDIAC: Dyspnea on exertion and edema is noted, but no history of PND. Questionable history of paroxysmal atrial fibrillation many years ago. She is able to walk about two to three blocks with some shortness of breath. Occasional palpitations. GASTROINTESTINAL: Negative for hematemesis or melena. She has been followed by Dr. Barclay. NEUROLOGICAL: Occasional headaches, but no TIAs. No CVAs. MUSCULOSKELETAL: She has history of back pains and knee pains. Also, she has seen Dr. Quintanilla and Dr. Lindsey. GENITOURINARY: Negative for hematuria. PSYCHIATRY: History of anxiety. IMAGING STUDIES: Cardiacwise, she had a cardiac cath done which showed normal coronary arteries. Her Lexiscan in the past had been normal. Echocardiogram had shown normal LV systolic function. PHYSICAL EXAMINATION: GENERAL: Shows elderly female, who is conscious, alert, well oriented, in no acute distress. VITAL SIGNS: She is 5 feet, weighs 184 pounds. Blood pressure is 166/76, heart rate of 88, respiratory rate of 20, afebrile. HEENT: Head is normocephalic. Eyes, no pallor, no icterus. NECK: Supple. Dentures were noted. LUNGS: Clear to auscultation. HEART: PMI is normal. S1 and S2 is normal. No definite gallops. Soft, early systolic murmur in mitral area. ABDOMEN: Soft, nontender. EXTREMITIES: No cyanosis or clubbing. Varicosities are noted in both the legs, more on the right side. Marked swelling and redness is noted on the right knee area. The whole right leg is swollen. Distal pulses are 1+. MUSCULOSKELETAL: Arthritis all over. 1 to 2+ edema is noted, which is nonpitting. ASSESSMENT: History of hypertension. History of cellulitis of the right knee. Deep venous thrombosis on the right side, which is chronic, with probably worsening of the same. PLAN: The plan at this point is to admit her. Continue with the Coumadin to keep INR around 2, vascular consultation with Dr. Herrera. Infectious consult with Dr. Sumner and intravenous antibiotics. Care of plan was explained to the patient. Kit Rizzo MD
[2018-07-13 08:05] LABS: INR 1.9; PROTHROMBIN TIME 20.3 SECONDS (9.7-12.2)
[2018-07-13] MEDS: Ceftaroline 600 MG in Sodium Chloride 0.9% 100 ML IVPB SCH ×2 (08:43→21:37)
[2018-07-13] MEDS: diltiaZEM 180 mg/24 Hours CD Cap PO SCH (10:17)
[2018-07-13] MEDS: Pantoprazole 40 mg EC Tab PO SCH (10:18)
--- NOTE | 2018-07-13 15:31 | CP.PCM.PN ---
Subjective - Date & Time of Evaluation Date of Evaluation: 07/13/18 Time of Evaluation: 15:28 - Subjective Subjective: INFECTIOUS DISEASE PROGRESS NOTES BONI BARILLAS MD, FACP 07/13/2018 3T 353-A CHART REVIEWED PT EXAMINED CASE DISCUSSED CLINICALLY MOVE STABLE AMAZINGLY, LESS REDDNESS AND MORE ABLE TO BEND HER KNEE REVIEWED XRAYS AND CT SCAN, NO FX AND CELLULITIS MAYBE AN IMPORTANT ISSUE TO DEAL WITH. LUNGS CLEAR COR RR ABD SOFT EXT NOTED ABOVE-LESS REDDNESS! REPEAT LABS FOR AM CONTINUE TEFLARO ADD FLORASTOR BONI BARILLAS MD,FACP Objective - Vital Signs/Intake and Output Vital Signs (last 24 hours): Temp Pulse Resp BP Pulse Ox 98.1 F 64 20 166/65 H 96 07/13/18 08:21 07/13/18 08:21 07/13/18 08:21 07/13/18 10:18 07/13/18 08:21 Intake and Output: 07/13/18 07/13/18 06:59 18:59 Intake Total 940 Balance 940 - Medications Medications: Current Medications Acetaminophen (Tylenol 325mg Tab) 650 mg PO Q6 PRN PRN Reason: Pain Diltiazem HCl (Cardizem Cd) 180 mg PO DAILY [facility] Last Admin: 07/13/18 10:17 Dose: 180 mg Ceftaroline Fosamil 600 mg/ (Sodium Chloride) 100 mls @ 100 mls/hr IVPB Q12H [facility]; Protocol Last Admin: 07/13/18 08:43 Dose: 100 mls/hr Metoprolol Tartrate (Lopressor) 25 mg PO BID [facility] Last Admin: 07/13/18 10:18 Dose: 25 mg Pantoprazole Sodium (Protonix Ec Tab) 40 mg PO DAILY [facility] Last Admin: 07/13/18 10:18 Dose: 40 mg Rosuvastatin Calcium (Crestor) 5 mg PO HS [facility] Last Admin: 07/12/18 21:16 Dose: 5 mg Warfarin Sodium (Coumadin) 3 mg PO 1800 [facility] Stop: 07/13/18 18:01 - Labs Labs: 07/12/18 07:10 07/12/18 07:10 PT 20.3 SECONDS (9.7-12.2) H 07/13/18 07:50 INR 1.9 07/13/18 07:50 APTT 35 SECONDS (21-34) H 07/11/18 11:24
--- NOTE | 2018-07-13 17:14 | CP.PCM.PN ---
Subjective - Date & Time of Evaluation Date of Evaluation: 07/13/18 Time of Evaluation: 17:12 - Subjective Subjective: redenss & pains are getting better. Objective - Vital Signs/Intake and Output Vital Signs (last 24 hours): Temp Pulse Resp BP Pulse Ox 98.1 F 64 20 166/65 H 96 07/13/18 08:21 07/13/18 08:21 07/13/18 08:21 07/13/18 10:18 07/13/18 08:21 Intake and Output: 07/13/18 07/13/18 06:59 18:59 Intake Total 940 600 Balance 940 600 - Medications Medications: Current Medications Acetaminophen (Tylenol 325mg Tab) 650 mg PO Q6 PRN PRN Reason: Pain Diltiazem HCl (Cardizem Cd) 180 mg PO DAILY [facility] Last Admin: 07/13/18 10:17 Dose: 180 mg Ceftaroline Fosamil 600 mg/ (Sodium Chloride) 100 mls @ 100 mls/hr IVPB Q12H [facility]; Protocol Last Admin: 07/13/18 08:43 Dose: 100 mls/hr Metoprolol Tartrate (Lopressor) 25 mg PO BID [facility] Last Admin: 07/13/18 10:18 Dose: 25 mg Pantoprazole Sodium (Protonix Ec Tab) 40 mg PO DAILY [facility] Last Admin: 07/13/18 10:18 Dose: 40 mg Rosuvastatin Calcium (Crestor) 5 mg PO HS [facility] Last Admin: 07/12/18 21:16 Dose: 5 mg Saccharomyces Boulardii (Florastor) 500 mg PO BID [facility] Warfarin Sodium (Coumadin) 3 mg PO 1800 [facility] Stop: 07/13/18 18:01 - Labs Labs: 07/12/18 07:10 07/12/18 07:10 PT 20.3 SECONDS (9.7-12.2) H 07/13/18 07:50 INR 1.9 07/13/18 07:50 APTT 35 SECONDS (21-34) H 07/11/18 11:24 - Constitutional Appears: No Acute Distress - Head Exam Head Exam: NORMOCEPHALIC - Neck Exam Neck Exam: Normal Inspection - Respiratory Exam Respiratory Exam: Clear to Ausculation Bilateral - Cardiovascular Exam Cardiovascular Exam: REGULAR RHYTHM, Murmur - Extremities Exam Extremities Exam: Pedal Edema - Neurological Exam Neurological Exam: Alert, Oriented x3 Assessment and Plan - Assessment and Plan (Free Text) Plan: cellulitis getting better.inr noted.infectious consult grant.cpm.
[2018-07-13] MEDS: Saccharomyces Boulardi 250 mg Cap PO SCH (19:00)
[2018-07-14 07:58] LABS: BASO % 0.6 % (0.0-2.0); EOS # 0.1 K/uL (0.0-0.7); EOS % 1.9 % (0.0-4.0); HEMOGLOBIN 11.5 g/dL (11.0-16.0); LYMPH # 1.6 K/uL (1.0-4.3); MEAN CELL VOLUME 92.8 fL (81.0-99.0); MEAN CORPUSCULAR HEMOGLOBIN 30.4 pg (27.0-31.0); MEAN CORPUSCULAR HGB CONC 32.7 g/dL (33.0-37.0); MEAN PLATELET VOLUME 8.8 fL (7.2-11.7); MONO # 0.4 K/uL (0.0-0.8); MONO % 7.1 % (0.0-10.0); NEUT % 64.4 % (50.0-75.0); NRBC % 0.1 % (0.0-2.0); RBC 3.8 Mil/uL (3.80-5.20); RED CELL DISTRIBUTION WIDTH 16.7 % (11.5-14.5); WHITE BLOOD COUNT 6.2 K/uL (4.8-10.8)
[2018-07-14 08:22] LABS: ALB/GLOB RATIO 1.5 (1.0-2.1); ALBUMIN 3.7 g/dL (3.5-5.0); ALT/SGPT 21 U/L (9-52); AST/SGOT 18 U/L (14-36); BLOOD UREA NITROGEN 19 mg/dL (7-17); CALCIUM 8.8 mg/dl (8.6-10.4); GFR NON-AFRICAN AMERICAN > 60
[2018-07-14] MEDS: Ceftaroline 600 MG in Sodium Chloride 0.9% 100 ML IVPB SCH ×2 (08:24→21:30)
[2018-07-14] MEDS: Saccharomyces Boulardi 250 mg Cap PO SCH ×2 (09:00→18:15)
[2018-07-14] MEDS: Pantoprazole 40 mg EC Tab PO SCH (09:05)
[2018-07-14] MEDS: diltiaZEM 180 mg/24 Hours CD Cap PO SCH (09:05)
[2018-07-14 11:38] LABS: INR 1.9; PROTHROMBIN TIME 20.4 SECONDS (9.7-12.2)
[2018-07-14 16:37] VITALS: O2SAT 96
[2018-07-15 00:29] VITALS: TEMP 98.2
[2018-07-15 07:07] LABS: INR 1.8
[2018-07-15 08:06] VITALS: PULSE 66
[2018-07-15] MEDS: diltiaZEM 180 mg/24 Hours CD Cap PO SCH (10:33)
[2018-07-15] MEDS: Saccharomyces Boulardi 250 mg Cap PO SCH (10:33)
[2018-07-15] MEDS: Pantoprazole 40 mg EC Tab PO SCH (10:34)
[2018-07-15] MEDS: Ceftaroline 600 MG in Sodium Chloride 0.9% 100 ML IVPB SCH (10:34)
[2018-07-15 10:36] VITALS: BP 124/65
--- NOTE | 2018-07-15 13:23 | CP.PCM.PN ---
Subjective - Date & Time of Evaluation Date of Evaluation: 07/15/18 Time of Evaluation: 13:19 - Subjective Subjective: INFECTIOUS DISEASE PROGRESS NOTES BONI BARILLAS MD, FACP 07/15/2018 CHART REVIEWED PT EXAMINED CASE DISCUSSED CLINICALLY IMPROVING HER PATELLAR CELLULITIS IS RESOLVING NICELY BUT SLOWLY STILL PAINFUL POST TRAUMA BUT ID LUTZ RESPONDING CONTINUE IV, CONSIDER SWITCHING TO VIBRAMYCIN 100MG PO BID WITH FOOD, BUT NOT MILK PRODUCTS. FOLLOW UP NEEDED SHE CAN FOLLOW UP WITH ME IN 7-10 DAYS. TD Objective - Vital Signs/Intake and Output Vital Signs (last 24 hours): Temp Pulse Resp BP Pulse Ox 98.2 F 66 20 124/65 96 07/15/18 08:05 07/15/18 08:05 07/15/18 08:05 07/15/18 10:34 07/15/18 08:05 Intake and Output: 07/15/18 07/15/18 06:59 18:59 Intake Total 400 Output Total 500 Balance -100 - Medications Medications: Current Medications Acetaminophen (Tylenol 325mg Tab) 650 mg PO Q6 PRN PRN Reason: Pain Diltiazem HCl (Cardizem Cd) 180 mg PO DAILY [facility] Last Admin: 07/15/18 10:33 Dose: 180 mg Ceftaroline Fosamil 600 mg/ (Sodium Chloride) 100 mls @ 100 mls/hr IVPB Q12H [facility]; Protocol Last Admin: 07/15/18 10:34 Dose: 100 mls/hr Metoprolol Tartrate (Lopressor) 25 mg PO BID [facility] Last Admin: 07/15/18 10:34 Dose: 25 mg Pantoprazole Sodium (Protonix Ec Tab) 40 mg PO DAILY [facility] Last Admin: 07/15/18 10:34 Dose: 40 mg Rosuvastatin Calcium (Crestor) 5 mg PO HS [facility] Last Admin: 07/14/18 22:07 Dose: 5 mg Saccharomyces Boulardii (Florastor) 500 mg PO BID [facility] Last Admin: 07/15/18 10:33 Dose: 500 mg - Labs Labs: 07/14/18 07:43 07/14/18 07:43 PT 20.0 SECONDS (9.7-12.2) H 07/15/18 06:58 INR 1.8 07/15/18 06:58 APTT 35 SECONDS (21-34) H 07/11/18 11:24
--- NOTE | 2018-07-16 08:32 | DS ---
HISTORY OF PRESENT ILLNESS: A 77-year-old female was brought in with history of cellulitis of the right leg. She has a history of DVT in the past. Routine labs were acceptable. She was afebrile. IV antibiotics were given with the improvement. Vascular consultation Dr. Herrera and infectious disease consultation Dr. Sumner was obtained. She is doing better. Cellulitis almost resolved. At this point, we will discharge her and continue with her Coumadin 3 mg once a day along with other blood pressure medicines, Vibramycin 100 mg twice a day with food was given for 10 days. I will see her back in about 10 days' time. FINAL DIAGNOSES: 1. Cellulitis of the leg. 2. Hypertension. 3. Recurrent deep venous thrombosis in the past, status post filter placement. Kit Rizzo MD
== END 2018-07-15 15:48 | disposition home or self-care (01) | DRG 603 ==
LOC: C.ER 10:39 → C.9E 15:10 → C.3T 18:31
PROVIDERS: ADMIT Internal Medicine Cardiovascular Disease; ATTEND Internal Medicine Cardiovascular Disease
DX: L03.115 Cellulitis of right lower limb (principal); I82.91 Chronic embolism and thrombosis of unspecified vein; E78.00 Pure hypercholesterolemia, unspecified; I10 Essential (primary) hypertension; M19.90 Unspecified osteoarthritis, unspecified site; E78.5 Hyperlipidemia, unspecified; Z79.01 Long term (current) use of anticoagulants

== ENCOUNTER 2018-09-10 11:16 | Outpatient (CLI) | payer MEDICARE | END 2018-09-10 11:17 | disposition home or self-care (01) | LOC: C.LAB 11:16 | DX: Z79.01 Long term (current) use of anticoagulants (principal) ==

== ENCOUNTER 2018-10-25 10:02 | Outpatient (CLI) | payer MEDICARE | END 2018-10-25 10:03 | disposition home or self-care (01) | LOC: C.LAB 10:02 | DX: R63.4 Abnormal weight loss (principal); R10.84 Generalized abdominal pain ==

== ENCOUNTER 2018-11-05 13:14 | Outpatient (CLI) | payer MEDICARE | END 2018-11-05 13:15 | disposition home or self-care (01) | LOC: C.LAB 13:14 | DX: Z79.01 Long term (current) use of anticoagulants (principal) ==

== ENCOUNTER 2018-11-06 10:04 | Outpatient (CLI) | payer MEDICARE | END 2018-11-06 10:05 | disposition home or self-care (01) | LOC: C.CTH 10:04 ==